=== PATIENT | female | born 1995 | race Caucasian/White ===

== ENCOUNTER 2018-07-19 14:27 | Emergency (ER) | payer OTHER ==
[2018-07-19 14:37] VITALS: BP 144/79; PULSE 90; RESP 18; TEMP 97.6
--- NOTE | 2018-07-19 15:52 | XR ---
EXAMINATION TYPE: XR foot complete LT DATE OF EXAM: 07/19/2018 COMPARISON: NONE HISTORY: Stubbed foot TECHNIQUE: 3 views FINDINGS: I see no fracture nor dislocation. Metatarsals are intact. Joint spaces are normal. IMPRESSION: Negative left foot exam.
--- NOTE | 2018-07-19 16:00 | ED ---
General Adult HPI - General Chief complaint: Extremity Injury, Lower Stated complaint: left 2nd toe injury Source: patient, RN notes reviewed, old records reviewed Mode of arrival: ambulatory Limitations: no limitations - History of Present Illness Initial comments: 22-year-old female patient no pertinent past history presents to ED after sustaining a mechanical toe injury to the second toe on her left foot yesterday. Patient was reportedly running up the stairs when she stubbed her toe against the stair. She did not fall. Patient has had pain with ambulation since. Patient denies any falls, head trauma, neck trauma, any other injury sustained. Patient denies all other complaints. Systemic: Pt denies fatigue, myalgia, fever/chills, rash. Pt denies weakness, night sweats, weight loss. Neuro: Pt denies headache, visual disturbances, syncope or pre-syncope. HEENT: Pt denies ocular discharge or irritation, otalgia, rhinorrhea, pharyngitis or notable lymphadenopathy. Cardiopulmonary: Pt denies chest pain, SOB, heart palpitations, dyspnea on exertion. Abdominal/GI: Pt denies abdominal pain, n/v/d. : Pt denies dysuria, burning w/ urination, frequency/urgency. Denies new onset urinary or bowel incontinence. MSK: Pt denies myalgia, loss of strength or function in extremities. Neuro: Pt denies new onset weakness, paresthesias. - Related Data Allergies Allergy/AdvReac Type Severity Reaction Status Date / Time No Known Allergies Allergy Verified 07/19/18 14:33 Review of Systems ROS Statement: Those systems with pertinent positive or pertinent negative responses have been documented in the HPI. ROS Other: All systems not noted in ROS Statement are negative. Past Medical History Past Medical History: No Reported History History of Any Multi-Drug Resistant Organisms: None Reported Past Surgical History: No Surgical Hx Reported Past Psychological History: Anxiety, Depression, PTSD Smoking Status: Current every day smoker Past Alcohol Use History: Daily Past Drug Use History: Marijuana General Exam - General Exam Comments Initial Comments: Constitutional: NAD, AOX3, Pt has pleasant affect. HEENT: NC/AT, trachea midline, neck supple, no lymphadenopathy. Posterior pharynx non erythematous, without exudates. External ears appear normal, without discharge. Mucous membranes moist. Eyes PERRLA, EOM intact. There is no scleral icterus. No pallor noted. Cardiopulmonary: RRR, no murmurs, rubs or gallops, no JVD noted. Lungs CTAB in anterior and posterior acosta. No peripheral edema. Abdominal exam: Abdomen soft and non-distended. Abdomen non-tender to palpation in all 4 quadrants. Bowel sounds active in LLQ. No hepatosplenomegaly. No ecchymosis Neuro: CN II-XII grossly intact. No nuchal rigidity. MSK: Second toe left foot DIP moderately tender to palpation. No significant ecchymosis. Patient has full range of motion, neurovascularly intact. Sensation intact. No other areas of tenderness on foot or ankle. No posterior calf tenderness bilaterally, homans sign negative bilaterally. Posterior tibialis and radial pulse +2 bilaterally. Sensation intact in upper and lower extremities. Full active ROM in upper and lower extremities, 5/5 stregnth. Limitations: no limitations Course Vital Signs 07/19/18 14:33 Temperature 97.6 F Pulse Rate 90 Respiratory 18 Rate Blood Pressure 144/79 O2 Sat by Pulse 100 Oximetry Medical Decision Making - Medical Decision Making 22-year-old female patient presents to ED if sustaining a mechanical toe injury to second toe left foot yesterday. Physical exam displayed the DIP of the affected toe to be mildly tender to palpation.Neurovascularly intact. Plain film did not display any acute fracture. Patient informed of findings. Patient of this is likely just a sprain/contusion. Patient to use [id number] anti -inflammatories for pain as needed. Patient prescribed postop walking shoe to help with symptoms. Patient to bear weight as tolerated. Patient to follow with PCP in 1-2 days. Patient to return to ED if any new signs symptoms develop. Case discussed with Dr. Sykes. Disposition Clinical Impression: Sprain of toe Disposition: HOME SELF-CARE Condition: Good Instructions: Foot Sprain (ED) Additional Instructions: Patient to adhere to previously discussed treatment plan and will take medication(s) as directed. Patient to follow up with PCP in 1-2 days. Patient to return to ED if symptoms do not improve. Is patient prescribed a controlled substance at d/c from ED?: No Referrals: Charlene Woods DO [Primary Care Provider] - 1-2 days Time of Disposition: 16:00
== END 2018-07-19 16:06 | disposition home or self-care (01) ==
LOC: EC 14:27
DX: S93.515A Sprain of interphalangeal joint of left lesser toe(s), initial encounter (principal); F17.200 Nicotine dependence, unspecified, uncomplicated; W22.8XXA Striking against or struck by other objects, initial encounter; Y92.009 Unspecified place in unspecified non-institutional (private) residence as the place of occurrence of the external cause
CPT/HCPCS: 99284

== ENCOUNTER 2018-08-01 15:21 | Emergency (ER) | payer OTHER ==
[2018-08-01 17:00] VITALS: RESP 16; TEMP 98.2
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
[2018-08-01 19:45] VITALS: BP 132/91; PULSE 68
== END 2018-08-01 19:45 | disposition home or self-care (01) ==
LOC: EC 15:21
DX: S70.02XA Contusion of left hip, initial encounter (principal); F17.200 Nicotine dependence, unspecified, uncomplicated; V48.5XXA Car driver injured in noncollision transport accident in traffic accident, initial encounter; Y92.410 Unspecified street and highway as the place of occurrence of the external cause
CPT/HCPCS: 73502; 99283

== ENCOUNTER 2018-10-04 18:50 | Emergency (ER) | payer OTHER ==
[2018-10-04 18:57] VITALS: BP 135/86; PULSE 77; RESP 18; TEMP 98.1
[2018-10-04] MEDS ORDERED: IBUPROFEN 600 MG STARTER PACK 4 TAB BTL PO STA (19:14)
[2018-10-04] MEDS ORDERED: ACETAMINOPHEN TAB 500 MG TAB PO STA (19:15)
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
== END 2018-10-04 19:50 | disposition home or self-care (01) ==
LOC: EC 18:50
DX: S40.011A Contusion of right shoulder, initial encounter (principal); S81.812A Laceration without foreign body, left lower leg, initial encounter; L03.116 Cellulitis of left lower limb; Z48.02 Encounter for removal of sutures; F41.9 Anxiety disorder, unspecified; F32.9 Major depressive disorder, single episode, unspecified; F17.200 Nicotine dependence, unspecified, uncomplicated; Z79.899 Other long term (current) drug therapy; V43.52XA Car driver injured in collision with other type car in traffic accident, initial encounter; W22.11XA Striking against or struck by driver side automobile airbag, initial encounter; Y92.410 Unspecified street and highway as the place of occurrence of the external cause
CPT/HCPCS: 99284

== ENCOUNTER 2021-12-24 12:39 | Inpatient (IN) | payer OTHER ==
[2021-12-24] MEDS ORDERED: MORPHINE SULFATE 4 MG/ML SYRINGE IV STA (13:23)
[2021-12-24] MEDS ORDERED: SODIUM CHLORIDE 0.9% 1,000 ML IV STA (13:23)
--- NOTE | 2021-12-24 13:30 | ED ---
General Adult HPI - General Source: patient, family, RN notes reviewed, old records reviewed Mode of arrival: ambulatory Limitations: no limitations - History of Present Illness -: days(s) (5) Location: abdomen Associated Symptoms: other (rectal bleeding) Treatments Prior to Arrival: other <Tyrese Coates - Last Filed: 12/24/21 15:03> <JohnNick - Last Filed: 12/24/21 18:09> - General Chief complaint: Abdominal Pain Stated complaint: abd pain/blood in stool Time Seen by Provider: 12/24/21 13:15 - History of Present Illness Initial comments: Well-appearing 26-year-old female, alert and oriented 4, presents to the emergency room with her mom complaining of abdominal pain and one episode of br ight red rectal bleeding today. Patient states that she was seen at [facility] 5 days ago for abdominal pain and transferred to [facility]. She states that PAYROLL BENEFITS ADMINISTRATOR and general surgery cleared her after CT scan, ultrasound and blood work and she was discharged home yesterday. She states that her hemoglobin at discharge was 8. She continues to have abdominal pain and nausea and vomiting. She states her vomitus is food and watery in nature, denies any blood. She states they did rule out ovarian torsion but states she they told her she does have a mass in her pelvis, not clear on a diagnosis. They didn't state that it may be a hemorrhagic cyst. Patient states that she started her period today. She has not made an appointment to follow up with her PAYROLL BENEFITS ADMINISTRATOR yet. She did call her primary care doctor who recommended her come back to the emergency room for re-evaluation. She states that she was not happy with the care she received an [place] and felt she was discharged to soon. She denies any other medical history other than migraine headaches which she was frequently taking Excedrin Migraine and is now taking sumatriptan. She denies any chest pain or difficulty breathing. No fevers. She does vape, denies drug or alcohol use. (Tyrese Coates) - Related Data Home Medications Medication Instructions Recorded Confirmed Amitriptyline HCl [Elavil] 25 mg PO HS 12/24/21 12/24/21 Docusate [Colace] 100 mg PO TID 12/24/21 12/24/21 HYDROcodone/APAP 5-325MG [Minter 1 tab PO 5XD PRN 12/24/21 12/24/21 5-325] Ibuprofen [Motrin] 800 mg PO Q6H PRN 12/24/21 12/24/21 Magnesium Oxide [Magox 400] 400 mg PO DAILY 12/24/21 12/24/21 Melatonin 20 mg PO HS 12/24/21 12/24/21 Ondansetron [Zofran ODT] 4 mg PO Q8HR PRN 12/24/21 12/24/21 SUMAtriptan succinate 100 mg PO BID PRN 12/24/21 12/24/21 Allergies Allergy/AdvReac Type Severity Reaction Status Date / Time No Known Allergies Allergy Verified 12/24/21 15:36 Review of Systems ROS Other: All systems not noted in ROS Statement are negative. <Tyrese Coates - Last Filed: 12/24/21 15:03> ROS Other: All systems not noted in ROS Statement are negative. <Nick Lopez - Last Filed: 12/24/21 18:09> ROS Statement: Those systems with pertinent positive or pertinent negative responses have been documented in the HPI. Past Medical History Past Medical History: No Reported History Additional Past Medical History / Comment(s): Migraines History of Any Multi-Drug Resistant Organisms: None Reported Past Surgical History: No Surgical Hx Reported Additional Past Surgical History / Comment(s): Ovarian cyst. Past Psychological History: Anxiety, Depression, PTSD Smoking Status: Vaper Past Alcohol Use History: Daily Past Drug Use History: Marijuana <Tyrese Coates - Last Filed: 12/24/21 15:03> General Exam Limitations: no limitations General appearance: alert, in no apparent distress Head exam: Present: atraumatic Eye exam: Present: normal appearance, EOMI. Absent: scleral icterus, conjunctival injection, periorbital swelling ENT exam: Present: normal exam, normal oropharynx, mucous membranes moist Neck exam: Present: full ROM. Absent: tenderness, meningismus Respiratory exam: Present: normal lung sounds bilaterally. Absent: respiratory distress, accessory muscle use Cardiovascular Exam: Present: regular rate, normal rhythm GI/Abdominal exam: Present: soft, tenderness (Left lower quadrant, suprapubic). Absent: distended, guarding, rigid Rectal exam: Present: normal rectal tone, hemorrhoids. Absent: mass, tenderness External exam: Present: other (tampon in place ) Extremities exam: Present: full ROM, normal capillary refill. Absent: tenderness, pedal edema Back exam: Present: normal inspection, full ROM. Absent: tenderness, CVA tenderness (R), CVA tenderness (L), rash noted Neurological exam: Present: alert, oriented X3, normal gait Psychiatric exam: Present: anxious (tearful) Skin exam: Present: warm, dry, normal color. Absent: cyanosis, diaphoretic, erythema, petechiae, pallor <Tyrese Coates - Last Filed: 12/24/21 15:03> Course <Nick Lopez - Last Filed: 12/24/21 18:09> Vital Signs 12/24/21 12/24/21 12:45 14:13 Temperature 98.1 F 99.0 F Pulse Rate 78 99 Respiratory 18 14 Rate Blood Pressure 129/83 127/77 O2 Sat by Pulse 97 100 Oximetry - Reevaluation(s) Reevaluation #1: 12/24/21 18:04 The patient was endorsed me at shift change pending ultrasound results. Ultrasound does show evidence of fluid in the pelvis suspicious for blood after discussion with radiology CAT scan was ordered a CAT scan is showing evidence a large amount of blood is believed be hemorrhagic fluid in the pelvis. I did discuss case Dr. Smith who did come see the patient will be admitted with TRACTOR DRILL OPERATOR consultation. I did discuss the findings the patient and family. (Nick Lopez) Medical Decision Making - Lab Data Result diagrams: 12/24/21 14:00 12/24/21 14:00 <Tyrese Coates - Last Filed: 12/24/21 15:03> - Lab Data Result diagrams: 12/24/21 14:00 12/24/21 14:00 <Nick Lopez - Last Filed: 12/24/21 18:09> - Medical Decision Making Patient presents with abdominal pain for 5 days and rectal bleeding that started today. Hemoglobin is 10.4, occult blood is positive. UA shows 1+ ketones and she was given a liter of saline. Her urine test is negative. Ultrasound is pending, case was signed out to Dr. Lopez (Tyrese Coates) - Lab Data Lab Results 12/24/21 12/24/21 12/24/21 Range/Units 14:00 14:00 14:00 WBC 7.8 (3.8-10.6) k/uL RBC 3.55 L (3.80-5.40) m/uL Hgb 10.4 L (11.4-16.0) gm/dL Hct 31.4 L (34.0-46.0) % MCV 88.6 (80.0-100.0) fL MCH 29.2 (25.0-35.0) pg MCHC 33.0 (31.0-37.0) g/dL RDW 13.6 (11.5-15.5) % Plt Count 275 (150-450) k/uL MPV 7.6 Neutrophils % 69 % Lymphocytes % 21 % Monocytes % 7 % Eosinophils % 0 % Basophils % 1 % Neutrophils # 5.4 (1.3-7.7) k/uL Lymphocytes # 1.7 (1.0-4.8) k/uL Monocytes # 0.5 (0-1.0) k/uL Eosinophils # 0.0 (0-0.7) k/uL Basophils # 0.0 (0-0.2) k/uL PT 10.4 (9.0-12.0) sec INR 0.9 (<1.2) APTT 25.3 (22.0-30.0) sec Sodium 137 (137-145) mmol/L Potassium 3.7 (3.5-5.1) mmol/L Chloride 102 (98-107) mmol/L Carbon Dioxide 29 (22-30) mmol/L Anion Gap 6 mmol/L BUN 11 (7-17) mg/dL Creatinine 0.55 (0.52-1.04) mg/dL Est GFR (CKD-EPI)AfAm >90 (>60 ml/min/1.73 sqM) Est GFR (CKD-EPI)NonAf >90 (>60 ml/min/1.73 sqM) Glucose 114 H (74-99) mg/dL Plasma Lactic Acid Mike (0.7-2.0) mmol/L Calcium 9.8 (8.4-10.2) mg/dL Total Bilirubin 0.9 (0.2-1.3) mg/dL AST 51 H (14-36) U/L ALT 35 H (4-34) U/L Alkaline Phosphatase 60 (38-126) U/L Total Protein 7.8 (6.3-8.2) g/dL Albumin 4.5 (3.5-5.0) g/dL Amylase 68 (30-110) U/L Lipase 110 (23-300) U/L Urine Color Urine Appearance (Clear) Urine pH (5.0-8.0) Ur Specific [place] (1.001-1.035) Urine Protein (Negative) Urine Glucose (UA) (Negative) Urine Ketones (Negative) Urine Blood (Negative) Urine Nitrite (Negative) Urine Bilirubin (Negative) Urine Urobilinogen (<2.0) mg/dL Ur Leukocyte Esterase (Negative) Urine HCG, Qual (Not Detectd) Stool Occult Blood (Negative) Blood Type Blood Type Recheck Bld Type Recheck Status Antibody Screen Spec Expiration Date 12/24/21 12/24/21 12/24/21 Range/Units 14:00 14:00 14:12 WBC (3.8-10.6) k/uL RBC (3.80-5.40) m/uL Hgb (11.4-16.0) gm/dL Hct (34.0-46.0) % MCV (80.0-100.0) fL MCH (25.0-35.0) pg MCHC (31.0-37.0) g/dL RDW (11.5-15.5) % Plt Count (150-450) k/uL MPV Neutrophils % % Lymphocytes % % Monocytes % % Eosinophils % % Basophils % % Neutrophils # (1.3-7.7) k/uL Lymphocytes # (1.0-4.8) k/uL Monocytes # (0-1.0) k/uL Eosinophils # (0-0.7) k/uL Basophils # (0-0.2) k/uL PT (9.0-12.0) sec INR (<1.2) APTT (22.0-30.0) sec Sodium (137-145) mmol/L Potassium (3.5-5.1) mmol/L Chloride (98-107) mmol/L Carbon Dioxide (22-30) mmol/L Anion Gap mmol/L BUN (7-17) mg/dL Creatinine (0.52-1.04) mg/dL Est GFR (CKD-EPI)AfAm (>60 ml/min/1.73 sqM) Est GFR (CKD-EPI)NonAf (>60 ml/min/1.73 sqM) Glucose (74-99) mg/dL Plasma Lactic Acid Mike 1.3 (0.7-2.0) mmol/L Calcium (8.4-10.2) mg/dL Total Bilirubin (0.2-1.3) mg/dL AST (14-36) U/L ALT (4-34) U/L Alkaline Phosphatase (38-126) U/L Total Protein (6.3-8.2) g/dL Albumin (3.5-5.0) g/dL Amylase (30-110) U/L Lipase (23-300) U/L Urine Color Light Yellow Urine Appearance Clear (Clear) Urine pH 8.0 (5.0-8.0) Ur Specific [place] 1.009 (1.001-1.035) Urine Protein Negative (Negative) Urine Glucose (UA) Negative (Negative) Urine Ketones 1+ H (Negative) Urine Blood Negative (Negative) Urine Nitrite Negative (Negative) Urine Bilirubin Negative (Negative) Urine Urobilinogen <2.0 (<2.0) mg/dL Ur Leukocyte Esterase Negative (Negative) Urine HCG, Qual (Not Detectd) Stool Occult Blood (Negative) Blood Type O Positive Blood Type Recheck No Previous Record Bld Type Recheck Status CABO Indicated Antibody Screen NEGATIVE Spec Expiration Date 12/27/2021229912/24/21 12/24/21 Range/Units 14:12 14:12 WBC (3.8-10.6) k/uL RBC (3.80-5.40) m/uL Hgb (11.4-16.0) gm/dL Hct (34.0-46.0) % MCV (80.0-100.0) fL MCH (25.0-35.0) pg MCHC (31.0-37.0) g/dL RDW (11.5-15.5) % Plt Count (150-450) k/uL MPV Neutrophils % % Lymphocytes % % Monocytes % % Eosinophils % % Basophils % % Neutrophils # (1.3-7.7) k/uL Lymphocytes # (1.0-4.8) k/uL Monocytes # (0-1.0) k/uL Eosinophils # (0-0.7) k/uL Basophils # (0-0.2) k/uL PT (9.0-12.0) sec INR (<1.2) APTT (22.0-30.0) sec Sodium (137-145) mmol/L Potassium (3.5-5.1) mmol/L Chloride (98-107) mmol/L Carbon Dioxide (22-30) mmol/L Anion Gap mmol/L BUN (7-17) mg/dL Creatinine (0.52-1.04) mg/dL Est GFR (CKD-EPI)AfAm (>60 ml/min/1.73 sqM) Est GFR (CKD-EPI)NonAf (>60 ml/min/1.73 sqM) Glucose (74-99) mg/dL Plasma Lactic Acid Mike (0.7-2.0) mmol/L Calcium (8.4-10.2) mg/dL Total Bilirubin (0.2-1.3) mg/dL AST (14-36) U/L ALT (4-34) U/L Alkaline Phosphatase (38-126) U/L Total Protein (6.3-8.2) g/dL Albumin (3.5-5.0) g/dL Amylase (30-110) U/L Lipase (23-300) U/L Urine Color Urine Appearance (Clear) Urine pH (5.0-8.0) Ur Specific [place] (1.001-1.035) Urine Protein (Negative) Urine Glucose (UA) (Negative) Urine Ketones (Negative) Urine Blood (Negative) Urine Nitrite (Negative) Urine Bilirubin (Negative) Urine Urobilinogen (<2.0) mg/dL Ur Leukocyte Esterase (Negative) Urine HCG, Qual Not Detected (Not Detectd) Stool Occult Blood Positive H (Negative) Blood Type Blood Type Recheck Bld Type Recheck Status Antibody Screen Spec Expiration Date Disposition <Tyrese Coates - Last Filed: 12/24/21 15:03> Decision Date: 12/24/21 Decision Time: 18:09 <Nick Lopez - Last Filed: 12/24/21 18:09> Clinical Impression: Intra abdominal hemorrhage, Abdominal pain, Anemia Disposition: ADMITTED IP TO THIS [facility] Condition: Stable Referrals: Anay Vieira MD [Primary Care Provider] - 1-2 days
[2021-12-24] MEDS ORDERED: LORazepam 2 MG/ML INJ IV STA (13:40)
[2021-12-24] MEDS ORDERED: ONDANSETRON 4 MG/2 ML VIAL IVP STA ×2 (13:41→20:07)
[2021-12-24 14:18] LABS: Basophils % (A) 1 %; Eosinophils % (A) 0 %; HCT 31.4 % (34.0-46.0); HGB 10.4 gm/dL (11.4-16.0); Lymphocytes # (A) 1.7 k/uL (1.0-4.8); Lymphocytes % (A) 21 %; MCH 29.2 pg (25.0-35.0); MCV 88.6 fL (80.0-100.0); Mean Platelet Volume 7.6; Monocytes # (A) 0.5 k/uL (0-1.0); Monocytes % (A) 7 %; Neutrophils # (A) 5.4 k/uL (1.3-7.7); Neutrophils % (A) 69 %; Platelet Count 275 k/uL (150-450); RBC 3.55 m/uL (3.80-5.40); RDW 13.6 % (11.5-15.5); WBC 7.8 k/uL (3.8-10.6)
[2021-12-24 14:27] LABS: Appearance,Urine Clear (Clear); Bilirubin,Urine Negative (Negative); Blood,Urine Negative (Negative); Color,Urine Light Yellow; Glucose,Urine (UA) Negative (Negative); Ketones,Urine 1+ (Negative); Leukocyte Esterase,Urine Negative (Negative); Nitrite,Urine Negative (Negative); Protein,Urine Negative (Negative); Specific Gravity,Urine 1.009 (1.001-1.035); Urobilinogen,Urine <2.0 mg/dL (<2.0)
[2021-12-24] MEDS ORDERED: PANTOPRAZOLE 40 MG/10 ML VIAL IVP STA (14:27)
[2021-12-24 14:28] LABS: INR 0.9 (<1.2); Partial Thromboplastin Time 25.3 sec (22.0-30.0); Prothrombin Time 10.4 sec (9.0-12.0)
[2021-12-24 14:37] LABS: ALT 35 U/L (4-34); AST 51 U/L (14-36); African American GFR (CKD) >90 (>60 ml/min/1.73 sqM); Albumin 4.5 g/dL (3.5-5.0); Alkaline Phosphatase 60 U/L (38-126); Amylase 68 U/L (30-110); Anion Gap 6 mmol/L; Blood Urea Nitrogen 11 mg/dL (7-17); Calcium 9.8 mg/dL (8.4-10.2); Carbon Dioxide 29 mmol/L (22-30); Chloride 102 mmol/L (98-107); Glucose 114 mg/dL (74-99); Lipase 110 U/L (23-300); Non-African American GFR(CKD) >90 (>60 ml/min/1.73 sqM); Potassium 3.7 mmol/L (3.5-5.1); Sodium 137 mmol/L (137-145); Total Bilirubin 0.9 mg/dL (0.2-1.3); Total Protein 7.8 g/dL (6.3-8.2)
--- NOTE | 2021-12-24 15:43 | US ---
EXAMINATION TYPE: US transvaginal DATE OF EXAM: 12/24/2021 COMPARISON: NONE CLINICAL HISTORY: pelvic mass, ovarian cyst. Pelvic mass, ovarian cyst per order. 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 Patient still has both ovaries. G0. TECHNIQUE: Transvaginal (TV). Date of LMP: 12/22/2021 EXAM MEASUREMENTS: Uterus: 6.6 x 4.1 x 3.6 cm Endometrial Stripe: 0.45 cm Right Ovary: 4.1 x 2.2 x 2.5 cm Left Ovary: Not definitely identified. 1. Uterus: Anteverted Appears slightly heterogeneous. 2. Endometrium: Measures 0.45 cm. 3. Right Ovary: Follicles seen. 4. Left Ovary: Not definitely identified. Area seen that could resemble the left ovary measuring 3.2 x 2.1 x 2.2 cm. Great amount of complex, heterogeneous material seen surrounding this area in the le ft adnexa. Spectral, color and waveform doppler imaging shows arterial and venous flow within the right ovary . Left ovary is not definitely identified. Area that could resemble the left ovary did show arterial and venous flow within. 5. Bilateral Adnexa: Great amount of complex material is seen throughout the pelvis. This appears to extend more toward the left adnexa. Definite borders of a mass not able to be identified. 6. Posterior cul-de-sac: Fluid is seen. IMPRESSION: 1. There is a large amount of complex material seen throughout the pelvis which could represent hemor rhage. Infectious etiologies not excluded. Left ovary is poorly defined and a left adnexal mass or he matoma also in the differential diagnosis. Recommend that CT scan. Report called to emergency room wi th result 3:33 PM 12/24/2021. Correlation with beta hCG recommend exclude ectopic . Pelvic mas s or neoplasm in the differential diagnosis.
--- NOTE | 2021-12-24 16:58 | CT ---
EXAMINATION TYPE: CT abdomen pelvis w con CT DLP: 579.2 mGycm, Automated exposure control for dose reduction was used. DATE OF EXAM: 12/24/2021 4:33 PM COMPARISON: Pelvic ultrasound same day. CLINICAL INDICATION:Female, 26 years old with history of Abdominal pain, acute, nonlocalized; Abdomin al pain, vomiting and bloody stool. Negative urine beta-hCG. TECHNIQUE: Standard CT of the abdomen and pelvis following the administration of 100 cc of Isovue 3 00 IV contrast material. Coronal and sagittal reformats were performed. FINDINGS: LOWER CHEST: Unremarkable ABDOMEN LIVER: Focal fatty infiltration adjacent to the falciform ligament in segment IVb GALLBLADDER AND BILE DUCTS: Unremarkable. PANCREAS: Unremarkable. SPLEEN: Unremarkable. ADRENAL GLANDS: Unremarkable. KIDNEYS AND URETERS: No evidence of hydronephrosis or renal calculus. The ureters are unremarkable. PELVIS BLADDER: Unremarkable REPRODUCTIVE: The ovaries are not definitively visualized secondary to blood products mentioned below . ABDOMEN & PELVIS STOMACH AND BOWEL: The sigmoid colon and rectum are suboptimally distended. No evidence of bowel obst ruction. The appendix is visualized and within normal limits. PERITONEUM: No evidence of pneumoperitoneum. There is complex high density fluid seen layering within the pelvis and paracolic gutters as seen on ultrasound. This higher density material is favored most consistent with blood products given Hounsfield units of ~60. VASCULATURE: There is questionable blush of contrast seen on series 201 image 56-59 near the level of the left external iliac. MUSCULOSKELETAL: No acute osseous abnormalities. LYMPH NODES: No gross evidence for lymphadenopathy. SOFT TISSUE/ABDOMINAL WALL: Unremarkable Findings communicated to Dr. Nick Lopez MD on 12/24/2021 4:[address] Nick Gutierres. IMPRESSION: 1. High density fluid within the pelvis and paracolic gutters most consistent with blood products. Q uestionable blush of contrast seen near the expected location of the left ovary. Consider CTA of the abdomen and pelvis with delayed imaging for further evaluation for source of hemorrhage. 2. Ovaries are not definitively visualized. 3. Appendix is visualized and within normal limits.
--- NOTE | 2021-12-24 17:57 | P.GSHP ---
History of Present Illness H&P Date: 12/24/21 CHIEF COMPLAINT: Lower abdominal pain for over one to 2 weeks HISTORY OF PRESENT ILLNESS: The patient is a 26-year-old female who presents with history where one year ago December 2020, she had a excision of teratoma along the right ovary over 6 cm in size. She reports questionable history of endometriosis. Today, she now presents with new history over one to 2 weeks ago with lower abdominal pain. She reports having her menstrual cycle. She also reports having menses. Patient was transferred from [facility] to [facility] in [facility]. Patient reports she was scheduled to undergo surgery however her surgery was canceled due to her Covid positive status. Patient was recently discharged from that facility several days ago. Patient reports her pain is severe 10 out of 10 uncontrolled with Mcbee including ibuprofen. Ultrasound of the pelvis demonstrated poor visualization of the left ovary. Right ovary was slightly enlarged over [address] of the abdomen and pelvis confirmed hemoperitoneum. With results of these findings, Gen. surgery is consulted, julia e her admission. PAST MEDICAL HISTORY: See list and reviewed PAST SURGICAL HISTORY: See list and reviewed CURRENT MEDICATIONS: See list and reviewed ALLERGIES: See list and reviewed SOCIAL HISTORY: See list and reviewed FAMILY HISTORY: See list and reviewed REVIEW OF ORGAN SYSTEMS: CONSTITUTIONAL: Present fever, no chills. Denies recent weight loss. HEENT: Denies any trouble with vision, hearing or nosebleeds. No difficulty swallowing. LYMPHATIC: The patient denies any lumps and bumps around the neck. ENDOCRINE: Denies any thyroid disorders. Denies any blood sugar glucose intolerance. RESPIRATORY: Denies shortness of breath including chronic cough. CARDIOVASCULAR: Denies history of chest pain with exertion. GASTROINTESTINAL: Denies regurgitation of bile at night. Reports tenesmus and intermittent constipation. GENITOURINARY: Denies any blood in urine or increased urinary frequency. MUSCULOSKELETAL: Denies current joint arthritis. NEUROLOGIC: Denies any numbness or tingling along the distal extremities. Has headaches due to Chiari malformation. PSYCHIATRIC: Denies any suicidal ideation. Has postemetic stress disorder, anxiety and depression. HEMATOLOGIC: Denies any abnormal bleeding or bruising. PHYSICAL EXAMINATION: VITALS: Reviewed GENERAL: Gen. well-developed female in moderate distress. Pleasant. HEENT: No sclera icterus. Extraocular movements grossly intact. Moist buccal mucosa. Head is atraumatic, normocephalic. Hears conversational speech. No nasal drainage. NECK: Supple without lymphadenopathy. No JV distention. CHEST: Non-labored respirations and equal bilateral excursions. CARDIOVASCULAR: Regular rate and rhythm. Palpable 2+ radial pulses. ABDOMEN: Soft. Diffusely tender. Peritoneal signs. MUSCULOSKELETAL: No clubbing, cyanosis or edema. NEUROLOGIC: No focal or lateralizing signs. PSYCH: Hyper/accelerated affect. Alert and oriented to person, place and time. SKIN: Well perfused. Good skin turgor. LABS: Reviewed. White blood cell count normal at 7.8. Hemoglobin low at 10.4. LFTs AST, ALT mildly elevated. Urine hCG is negative. Stool occult positive. STUDIES: CT of the abdomen and pelvis independently reviewed with flow within the pelvis. No solid organ injury of the spleen or liver or kidneys. This is my independent interpretation. REPORTS: Transvaginal ultrasound report review 4 cm right ovary. Left ovary not identified. Fluid identified in the posterior cul-de-sac. CT of the abdomen and pelvis report reviewed with solid organs unremarkable. Density with an pelvis consistent with blood and free fluid. ASSESSMENT: 1. Abnormal computed tomography scan of abdomen and pelvis with hemoperitoneum 2. Peritonitis 3. History of right ovarian turtle PLAN: 1. Surgical options described including diagnostic laparoscopy evacuation of hemoperitoneum and lysis of adhesions. 2. Gynecological consultation also described. 3. Family and patient agreeable to proceed with robotic lysis of adhesions, diagnostic laparoscopy with evacuation of hemoperitoneum. 4. Management of pain described including nonnarcotic pain management Past Medical History Past Medical History: No Reported History Additional Past Medical History / Comment(s): Migraines History of Any Multi-Drug Resistant Organisms: None Reported Past Surgical History: No Surgical Hx Reported Additional Past Surgical History / Comment(s): Ovarian cyst. Past Psychological History: Anxiety, Depression, PTSD Smoking Status: Vaper Past Alcohol Use History: Daily Past Drug Use History: Marijuana Medications and Allergies Home Medications Medication Instructions Recorded Confirmed Type Amitriptyline HCl [Elavil] 25 mg PO HS 12/24/21 12/24/21 History Docusate [Colace] 100 mg PO TID 12/24/21 12/24/21 History HYDROcodone/APAP 5-325MG [Mcbee 1 tab PO 5XD PRN 12/24/21 12/24/21 History 5-325] Magnesium Oxide [Magox 400] 400 mg PO DAILY 12/24/21 12/24/21 History Melatonin 20 mg PO HS 12/24/21 12/24/21 History Ondansetron [Zofran ODT] 4 mg PO Q8HR PRN 12/24/21 12/24/21 History SUMAtriptan succinate 100 mg PO BID PRN 12/24/21 12/24/21 History Acetaminophen Tab [Tylenol Tab] 1,000 mg PO Q6HR PRN #30 tablet 12/26/21 Rx Simethicone [Gas-X] 125 mg PO AC-TID PRN #20 capsule 12/26/21 Rx Allergies Allergy/AdvReac Type Severity Reaction Status Date / Time No Known Allergies Allergy Verified 12/24/21 15:36 Surgical - Exam Vital Signs Temp Pulse Resp BP Pulse Ox 98.1 F 78 18 129/83 97 12/24/21 12:45 12/24/21 12:45 12/24/21 12:45 12/24/21 12:45 12/24/21 12:45 Results - Labs 12/28/21 09:10 12/28/21 09:10 Abnormal Lab Results - Last 24 Hours (Table) 12/24/21 12/24/21 12/24/21 Range/Units 14:00 14:00 14:12 RBC 3.55 L (3.80-5.40) m/uL Hgb 10.4 L (11.4-16.0) gm/dL Hct 31.4 L (34.0-46.0) % Glucose 114 H (74-99) mg/dL AST 51 H (14-36) U/L ALT 35 H (4-34) U/L Urine Ketones 1+ H (Negative) Stool Occult Blood (Negative) 12/24/21 Range/Units 14:12 RBC (3.80-5.40) m/uL Hgb (11.4-16.0) gm/dL Hct (34.0-46.0) % Glucose (74-99) mg/dL AST (14-36) U/L ALT (4-34) U/L Urine Ketones (Negative) Stool Occult Blood Positive H (Negative) Diabetes panel 12/24/21 Range/Units 14:00 Sodium 137 (137-145) mmol/L Potassium 3.7 (3.5-5.1) mmol/L Chloride 102 (98-107) mmol/L Carbon Dioxide 29 (22-30) mmol/L BUN 11 (7-17) mg/dL Creatinine 0.55 (0.52-1.04) mg/dL Glucose 114 H (74-99) mg/dL Calcium 9.8 (8.4-10.2) mg/dL AST 51 H (14-36) U/L ALT 35 H (4-34) U/L Alkaline Phosphatase 60 (38-126) U/L Total Protein 7.8 (6.3-8.2) g/dL Albumin 4.5 (3.5-5.0) g/dL Calcium panel 12/24/21 Range/Units 14:00 Calcium 9.8 (8.4-10.2) mg/dL Albumin 4.5 (3.5-5.0) g/dL Pituitary panel 12/24/21 Range/Units 14:00 Sodium 137 (137-145) mmol/L Potassium 3.7 (3.5-5.1) mmol/L Chloride 102 (98-107) mmol/L Carbon Dioxide 29 (22-30) mmol/L BUN 11 (7-17) mg/dL Creatinine 0.55 (0.52-1.04) mg/dL Glucose 114 H (74-99) mg/dL Calcium 9.8 (8.4-10.2) mg/dL Adrenal panel 12/24/21 Range/Units 14:00 Sodium 137 (137-145) mmol/L Potassium 3.7 (3.5-5.1) mmol/L Chloride 102 (98-107) mmol/L Carbon Dioxide 29 (22-30) mmol/L BUN 11 (7-17) mg/dL Creatinine 0.55 (0.52-1.04) mg/dL Glucose 114 H (74-99) mg/dL Calcium 9.8 (8.4-10.2) mg/dL Total Bilirubin 0.9 (0.2-1.3) mg/dL AST 51 H (14-36) U/L ALT 35 H (4-34) U/L Alkaline Phosphatase 60 (38-126) U/L Total Protein 7.8 (6.3-8.2) g/dL Albumin 4.5 (3.5-5.0) g/dL
[2021-12-24] MEDS ORDERED: SUMAtriptan succinate 50 MG TAB PO PRN (18:01)
[2021-12-24] MEDS ORDERED: NALOXONE 0.4 MG/ML 1 ML VIAL IV PRN (18:10)
[2021-12-24] MEDS: ACETAMINOPHEN IVPB SCH (19:26)
[2021-12-24] MEDS: HYDROmorphone 1 MG/ML 1 ML SYRINGE IVP PRN ×2 (20:16→23:39)
[2021-12-24] MEDS: ONDANSETRON 4 MG/2 ML VIAL IVP PRN (23:37)
[2021-12-25] MEDS: AMITRIPTYLINE HCL 25 MG TAB PO SCH (00:38)
[2021-12-25] MEDS: MELATONIN 5 MG TABLET PO SCH (00:38)
[2021-12-25] MEDS: FAMOTIDINE 20 MG TAB PO SCH ×2 (00:38→22:28)
[2021-12-25] MEDS: ACETAMINOPHEN IVPB SCH ×2 (01:25→22:28)
[2021-12-25 07:39] LABS: Basophils % (A) 1 %; Eosinophils # (A) 0.1 k/uL (0-0.7); Eosinophils % (A) 1 %; HGB 9.1 gm/dL (11.4-16.0); Lymphocytes # (A) 1.9 k/uL (1.0-4.8); Lymphocytes % (A) 28 %; MCH 29.3 pg (25.0-35.0); MCHC 32.5 g/dL (31.0-37.0); MCV 90.1 fL (80.0-100.0); Monocytes # (A) 0.4 k/uL (0-1.0); Monocytes % (A) 6 %; Neutrophils # (A) 4.1 k/uL (1.3-7.7); Neutrophils % (A) 61 %; Platelet Count 213 k/uL (150-450); RDW 13.7 % (11.5-15.5); WBC 6.6 k/uL (3.8-10.6)
[2021-12-25 08:11] LABS: African American GFR (CKD) >90 (>60 ml/min/1.73 sqM); Anion Gap 5 mmol/L; Blood Urea Nitrogen 9 mg/dL (7-17); Calcium 8.6 mg/dL (8.4-10.2); Carbon Dioxide 29 mmol/L (22-30); Chloride 103 mmol/L (98-107); Glucose 83 mg/dL (74-99); Non-African American GFR(CKD) >90 (>60 ml/min/1.73 sqM); Potassium 3.8 mmol/L (3.5-5.1); Sodium 137 mmol/L (137-145)
--- NOTE | 2021-12-25 09:04 | P.OBCN ---
History of Present Illness Consult date: 12/25/21 Reason for consult: pelvic pain (Hemoperitoneum) Chief complaint: Abdominal and pelvic pain History of present illness: 26-year-old G0 presented to the emergency room yesterday with complaints of increased abdominal pain. She was admitted last week to [facility] for 4 days due to bleeding inside of her pelvis. They were going to take her to the operating room but decided against that after positive Kallie test. I kept the patient for 4 days monitor her hemoglobin and then discharged her. She presented the next day to our emergency room complaining of increased pain. Dr. Smith admitted patient for diagnostic laparoscopy and removal of hemoperitoneum. Review of Systems All systems: negative Constitutional: Denies chills, Denies fever Eyes: denies blurred vision, denies pain Ears, nose, mouth and throat: Denies headache, Denies sore throat Cardiovascular: Denies chest pain, Denies shortness of breath Respiratory: Denies cough Gastrointestinal: Denies abdominal pain, Denies diarrhea, Denies nausea, Denies vomiting Genitourinary: Denies dysuria, Denies hematuria Musculoskeletal: Denies myalgias Integumentary: Denies pruritus, Denies rash Neurological: Denies numbness, Denies weakness Psychiatric: Denies anxiety, Denies depression Endocrine: Denies fatigue, Denies weight change Past Medical History Past Medical History: Neurologic Disorder (Chiari malformation) Additional Past Medical History / Comment(s): Migraines-caused by Chiari malformation History of Any Multi-Drug Resistant Organisms: None Reported Additional Past Surgical History / Comment(s): Dermoid cyst removed by laparoscopy Past Anesthesia/Blood Transfusion Reactions: No Reported Reaction Past Psychological History: Anxiety, Depression, PTSD Smoking Status: Vaper Past Alcohol Use History: Daily Past Drug Use History: Marijuana Medications and Allergies Home Medications Medication Instructions Recorded Confirmed Type Amitriptyline HCl [Elavil] 25 mg PO HS 12/24/21 12/24/21 History Docusate [Colace] 100 mg PO TID 12/24/21 12/24/21 History HYDROcodone/APAP 5-325MG [Bosque 1 tab PO 5XD PRN 12/24/21 12/24/21 History 5-325] Ibuprofen [Motrin] 800 mg PO Q6H PRN 12/24/21 12/24/21 History Magnesium Oxide [Magox 400] 400 mg PO DAILY 12/24/21 12/24/21 History Melatonin 20 mg PO HS 12/24/21 12/24/21 History Ondansetron [Zofran ODT] 4 mg PO Q8HR PRN 12/24/21 12/24/21 History SUMAtriptan succinate 100 mg PO BID PRN 12/24/21 12/24/21 History Allergies Allergy/AdvReac Type Severity Reaction Status Date / Time No Known Allergies Allergy Verified 12/24/21 15:36 Exam Osteopathic Statement: *. No significant issues noted on an osteopathic structural exam other than those noted in the History and Physical/Consult. Vital Signs Temp Pulse Pulse Resp BP BP Pulse Ox 12/25/21 03:43 98 F 76 16 105/68 100 12/25/21 00:00 98.6 F 82 16 130/80 100 12/24/21 23:20 98.2 F 85 18 135/87 100 12/24/21 22:03 98.2 F 85 16 135/87 100 12/24/21 19:34 98.7 F 96 14 113/74 100 12/24/21 14:13 99.0 F 99 14 127/77 100 12/24/21 12:45 98.1 F 78 18 129/83 97 Intake and Output 12/24/21 12/25/21 12/25/21 22:59 06:59 14:59 Intake Total 360 100 Balance 360 100 Intake: Intake, IV Titration 100 Amount .acetaminophen IV (Peds) 100 880 mg In Empty Bag 1 bag @ 352 mls/hr IVPB Q6HR [facility] Rx#:[id number] Oral 360 0 Other: # Voids 1 Weight 58.967 kg Heart: Regular rate and rhythm Lungs: Clearbilaterally Abdomen: Soft, mildly distended and tender to palpation Extremities: Negative Homans sign Results Result Diagrams: 12/25/21 07:18 12/25/21 07:18 Abnormal Lab Results - Last 24 Hours (Table) 12/24/21 12/24/21 12/24/21 Range/Units 14:00 14:00 14:12 RBC 3.55 L (3.80-5.40) m/uL Hgb 10.4 L (11.4-16.0) gm/dL Hct 31.4 L (34.0-46.0) % Glucose 114 H (74-99) mg/dL AST 51 H (14-36) U/L ALT 35 H (4-34) U/L Urine Ketones 1+ H (Negative) Stool Occult Blood (Negative) 12/24/21 12/25/21 Range/Units 14:12 07:18 RBC 3.10 L (3.80-5.40) m/uL Hgb 9.1 L (11.4-16.0) gm/dL Hct 28.0 L (34.0-46.0) % Glucose (74-99) mg/dL AST (14-36) U/L ALT (4-34) U/L Urine Ketones (Negative) Stool Occult Blood Positive H (Negative) Assessment and Plan (1) Intra abdominal hemorrhage Current Visit: Yes Status: Acute Code(s): R58 - HEMORRHAGE, NOT ELSEWHERE CLASSIFIED SNOMED Code(s): 632699986 Plan: 1. Dr. Smith will take the patient to the operating room today to evacuate the hemoperitoneum. If there are any pelvic organs then need my attention she can call me to the operating room at that time.
[2021-12-25] MEDS: HYDROmorphone 1 MG/ML 1 ML SYRINGE IVP PRN ×2 (09:09→12:05)
[2021-12-25] MEDS: ONDANSETRON 4 MG/2 ML VIAL IVP PRN ×3 (09:09→20:15)
[2021-12-25] MEDS ORDERED: LACTATED RINGERS 1,000 ML IV ONE ×2 (15:30→17:28)
[2021-12-25] MEDS ORDERED: HEPARIN SODIUM,PORCINE/PF 5,000 UNIT/0.5 ML SYRINGE SQ ONE (15:38)
[2021-12-25] MEDS ORDERED: SCOPOLAMINE 1 MG/72 HR PATCH TRANSDERM ONE (15:45)
[2021-12-25] MEDS ORDERED: DEXAMETHASONE SOD PHOSPHATE 4 MG/ML 1 ML VIAL IVP ONE (15:45)
[2021-12-25] MEDS ORDERED: MIDAZOLAM 2 MG/2 ML VIAL IVP ONE (15:45)
[2021-12-25] MEDS ORDERED: HEPARIN SODIUM,PORCINE 5,000 UNIT/ML 1 ML VIAL SQ ONE (16:02)
[2021-12-25] MEDS ORDERED: fentaNYL (PF) 50 MCG/ML 2 ML AMP IVP ONE (16:15)
[2021-12-25] MEDS ORDERED: PROPOFOL 10 MG/ML 20 ML VIAL IV ONE (16:24)
[2021-12-25] MEDS ORDERED: GLYCOPYRROLATE 0.2 MG/ML 2 ML VIAL ONE (16:24)
[2021-12-25] MEDS ORDERED: NEOSTIGMINE 1 MG/ML 10 ML VIAL ONE (16:24)
[2021-12-25] MEDS ORDERED: fentaNYL (PF) 50 MCG/ML 2 ML AMP ONE (16:24)
[2021-12-25] MEDS ORDERED: KETOROLAC 15 MG/ML 1 ML VIAL ONE (16:24)
[2021-12-25] MEDS ORDERED: MIDAZOLAM 2 MG/2 ML VIAL ONE (16:24)
[2021-12-25] MEDS ORDERED: LIDOCAINE 2% INJ 20 MG/ML (2 ML VIAL) ONE (16:24)
[2021-12-25] MEDS ORDERED: KETAMINE 10 MG/ML 20 ML VIAL ONE (16:24)
[2021-12-25] MEDS ORDERED: ROCURONIUM 10 MG/ML (5 ML VIAL) IV ONE (16:24)
[2021-12-25] MEDS ORDERED: SUCCINYLCHOLINE CHLORIDE 100 MG/5 ML SYR IV ONE (16:24)
[2021-12-25] MEDS ORDERED: LIDOCAINE 0.5%-EPI 1:200,000 50 ML VIAL SQ ONE (16:54)
[2021-12-25] MEDS ORDERED: HYDROmorphone 0.5 MG/0.5 ML SYRINGE IVP ONE (18:41)
--- NOTE | 2021-12-25 18:41 | P.OP ---
Date of Procedure: 12/25/21 Description of Procedure: SURGEON: YUNG SHARPE MD PREOPERATIVE DIAGNOSES: 1. Lower abdominal pain with peritonitis 2. Abnormal abdominal CT scan for hemoperitoneum 3. Chronic migraine headaches 4. Anxiety disorder 5. History of right ovarian teratoma 6. Budd-Chiari malformation 7. Depressive disorder 8. Posttraumatic stress disorder POSTOPERATIVE DIAGNOSES: 1. Lower abdominal pain with peritonitis 2. Abnormal abdominal CT scan for hemoperitoneum 3. Chronic migraine headaches 4. Anxiety disorder 5. History of right ovarian teratoma 6. Budd-Chiari malformation 7. Depressive disorder 8. Posttraumatic stress disorder 9. Left ovarian hemorrhagic cyst 10. Endometrioma of the left pelvis 11. Diffuse hemoperitoneum OPERATION: 1. Robotic-assisted da Abby Xi laparoscopic with lysis of adhesions with evacuation of hemoperitoneum 500 mL to 1000 mL 2. Peritoneal lavage 5000 mL normal saline ESTIMATED BLOOD LOSS: 5 mL. SPECIMENS REMOVED: None. COMPLICATIONS: None. Operative Findings: 1. Diffuse hemoperitoneum involving upper and lower abdomen 2. Over 5000 mL normal saline used to irrigate the abdomen 3. Between 500 mL to 1000 mL hemoperitoneum evacuated 4. Pelvic endometrioma involving the left ovary consistent with hemorrhagic left ovarian cyst 5. Right ovary unremarkable 6. Solid organs unremarkable 7. Fallopian tubes unremarkable 8. Large chocolate cyst involving the cul-de-sac posterior to the uterus INDICATIONS: The patient is a 26-year-old female who presents with moderate to severe generalized abdominal including the lower quadrant of the abdomen. Surgical intervention with diagnostic laparoscopy, lysis of adhesions and evacuation of hemoperitoneum were described. Informed consent was obtained. Robotic assisted laparoscopic approach was described. Informed consent was obtained. DESCRIPTION OF PROCEDURE: Patient was brought to the operating room, placed in supine position. After general induction, the abdomen had been prepped and draped in standard sterile fashion. The robotic da Abby XI system was primed. A timeout protocol was performed. The robot was docked along the left lateral abdomen. Please note prior to docking of the robot; however, a 5 mm 0 degree laparoscopic trocar entry was performed along the left upper quadrant. Next, three 8 mm robotic ports were placed along the upper abdomen. The camera 8-mm port was maintained along the epigastrium. Please note that the ports were placed at least 10 to 15 cm away from the target anatomy. Instruments including graspers and robotic suction computational theory scientist were interchanged by the processing assistant. The patient was placed in Trendelenburg position, 7. I had sat at the console. Moderate blood was found within the abdomen including of the bilateral upper abdomen and lower abdomen. The right ovary was unremarkable for recurrent ovarian cyst or teratoma. The right fallopian tube was unremarkable. The left ovary was adherent to the deep pelvis with a large chocolate cyst identified along the pelvis and cul-de-sac posterior to the uterus. Moderate fresh blood was identified. The left fallopian tube was unremarkable. The abdomen was irrigated copiously with normal saline. Additionally, the appendix was unremar kable. Attention was brought to see left upper quadrant where the abdomen was also irrigated of blood. Right upper quadrant was similarly irrigated. Peritoneal lavage 5000 mL normal saline was performed until the irrigant was clear. No further active bleeding was found within the abdomen. Findings were consistent with a ruptured hemorrhagic left ovarian cyst. Between 500 mL to 1000 mL of hemoperitoneum was evacuated from the abdominal cavity. The robot was undocked. All pneumoperitoneum and instruments were evacuated from the abdominal cavity. The incisions were reapproximated using 4-0 Monocryl in an interrupted subcuticular fashion. Please note along the trocar sites, local anesthetic was placed as a field block prior to insertion of all instruments. Exofin was applied to the skin. At the end of the procedure needle, sponge, and instrument count had been verified correct by the surgical services manager. The patient was transferred to postanesthesia care unit in stable condition. Intraoperative findings were discussed with the patient's family images reviewed. Postoperatively, patient reports that her lower abdominal pain had resolved. She no longer had tenesmus of the rectum.
--- NOTE | 2021-12-25 18:43 | P.PN ---
Progress Note - Text Progress Note Date: 12/25/21 Immediately postoperatively, patient reports resolution of perirectal discomfort from hemoperitoneum. Patient pain had improved.
[2021-12-25] MEDS ORDERED: SODIUM CHLORIDE 0.9% 1,000 ML IV ONE (19:02)
[2021-12-25] MEDS: HYDROcodone/APAP 5-325MG 1 EACH TAB PO PRN (19:53)
[2021-12-25] MEDS: MORPHINE SULFATE 4 MG/ML SYRINGE IVP PRN (20:36)
[2021-12-25] MEDS ORDERED: MORPHINE SULFATE 4 MG/ML SYRINGE IVP PRN ×2 (21:11→21:15)
[2021-12-25] MEDS ORDERED: METOCLOPRAMIDE 5 MG/ML 2 ML VIAL IVP STA (22:37)
[2021-12-26] MEDS: HYDROcodone/APAP 5-325MG 1 EACH TAB PO PRN ×5 (00:04→21:03)
[2021-12-26] MEDS: AMITRIPTYLINE HCL 25 MG TAB PO SCH ×2 (00:04→19:45)
[2021-12-26] MEDS: ACETAMINOPHEN TAB 325 MG TAB PO SCH ×5 (00:05→23:25)
[2021-12-26] MEDS: SIMETHICONE 40 MG/0.6 ML DROPS 2,000 MG/30 ML BOTTLE PO SCH ×5 (00:05→21:03)
[2021-12-26] MEDS: MELATONIN 5 MG TABLET PO SCH ×2 (00:05→21:04)
[2021-12-26] MEDS: FAMOTIDINE 20 MG TAB PO SCH ×3 (00:22→19:45)
[2021-12-26] MEDS: MORPHINE SULFATE 4 MG/ML SYRINGE IVP PRN ×4 (03:54→15:13)
--- NOTE | 2021-12-26 08:17 | P.PN ---
Subjective Progress Note Date: 12/26/21 CHIEF COMPLAINT: Hemoperitoneum HISTORY OF PRESENT ILLNESS: The patient is a 26-year-old status post diagnostic laparoscopy, lysis of adhesions and evacuation of hemoperitoneum between 500 mL 2000 mL. She reports improvement of her abdominal pain. She complains of appropriate incisional pain. Overall, patient reports feeling remarkably better. She is tolerating clear liquid diet. ROS: No reports of nausea and vomiting. No bowel movements. No fevers or chills. No new chest pain. No productive sputum PHYSICAL EXAM: VITAL SIGNS: Reviewed CONSTITUTIONAL: Well developed and in no acute distress. EYES: Conjuctivae without sclera icterus. Extraocular movements grossly intact. HEAD, EARS, NOSE, THROAT: Moist buccal mucosa. Head is atraumatic, normocephalic. Hears conversational speech. No nasal drainage. RESPIRATORY: Non-labored respirations and equal bilateral excursions. CARDIOVASCULAR: Palpable 2+ radial pulses. ABDOMEN: Incisions clean dry and intact. No peritonitis. MUSCULOSKELETAL: No gross deformity of the lower extremities noted. No clubbing. No cyanosis. SKIN: Good skin turgor. Well perfused. NEUROLOGIC: Cranial nerves II through XII grossly intact. No focal or lateralizing signs. PSYCH: Appropriate affect. Alert and oriented to person, place and time. CLINICAL LABS: Reviewed. Hemoglobin down to 10.1-9.1. ASSESSMENT: 1. Hemoperitoneum due to ruptured left ovarian hemorrhagic cyst 2. Acute blood loss anemia PLAN: 1. Will advance to regular diet 2. 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 Will follow-up as outpatient 4. Low impact activity in the next 1 week 5. Will need iron supplements. Objective - Vital Signs Vital signs: Vital Signs Temp 98.4 F 12/26/21 04:00 Pulse 73 12/26/21 04:00 Resp 17 12/26/21 04:00 BP 100/63 12/26/21 04:00 Pulse Ox 100 12/26/21 04:00 FiO2 Intake & Output 12/25/21 12/26/21 12/26/21 18:59 06:59 18:59 Intake Total 1750 125 Output Total 5 Balance 1745 125 Weight 58.967 kg 58.967 kg Intake: IV 1750 125 Output: Estimated Blood Loss 5 Other: # Voids 1 - Labs CBC & Chem 7: 12/25/21 07:18 12/25/21 07:18
[2021-12-26 09:30] LABS: Basophils % (A) 0 %; Eosinophils % (A) 0 %; HCT 27.8 % (34.0-46.0); HGB 9.5 gm/dL (11.4-16.0); Lymphocytes # (A) 1.6 k/uL (1.0-4.8); Lymphocytes % (A) 26 %; MCH 30.7 pg (25.0-35.0); MCHC 34.1 g/dL (31.0-37.0); MCV 90.2 fL (80.0-100.0); Mean Platelet Volume 7.6; Monocytes # (A) 0.5 k/uL (0-1.0); Monocytes % (A) 8 %; Neutrophils # (A) 3.9 k/uL (1.3-7.7); Neutrophils % (A) 64 %; Platelet Count 235 k/uL (150-450); RBC 3.08 m/uL (3.80-5.40); RDW 14.4 % (11.5-15.5)
[2021-12-26 09:57] LABS: African American GFR (CKD) >90 (>60 ml/min/1.73 sqM); Anion Gap 6 mmol/L; Blood Urea Nitrogen 10 mg/dL (7-17); Calcium 8.6 mg/dL (8.4-10.2); Carbon Dioxide 27 mmol/L (22-30); Chloride 103 mmol/L (98-107); Glucose 107 mg/dL (74-99); Non-African American GFR(CKD) >90 (>60 ml/min/1.73 sqM); Potassium 3.8 mmol/L (3.5-5.1); Sodium 136 mmol/L (137-145)
[2021-12-26] MEDS: HYDROmorphone 1 MG/ML 1 ML SYRINGE IVP PRN ×3 (16:09→23:26)
[2021-12-26] MEDS ORDERED: LORazepam 2 MG/ML INJ IV PRN (19:21)
[2021-12-26] MEDS: ONDANSETRON 4 MG/2 ML VIAL IVP PRN (20:32)
[2021-12-27] MEDS: ACETAMINOPHEN TAB 325 MG TAB PO SCH ×4 (05:59→23:26)
[2021-12-27] MEDS: FAMOTIDINE 20 MG TAB PO SCH ×2 (09:02→20:23)
[2021-12-27] MEDS: SIMETHICONE 40 MG/0.6 ML DROPS 2,000 MG/30 ML BOTTLE PO SCH ×4 (09:02→22:57)
[2021-12-27] MEDS: HYDROcodone/APAP 5-325MG 1 EACH TAB PO PRN ×2 (09:05→20:21)
[2021-12-27] MEDS: HYDROmorphone 1 MG/ML 1 ML SYRINGE IVP PRN ×5 (10:01→23:25)
--- NOTE | 2021-12-27 10:39 | P.PN ---
Subjective Progress Note Date: 12/27/21 Principal diagnosis: Hemoperitoneum 26-year-old female says she is having more upper abdominal pain now. The pain she had in the lower abdomen she says is improved. She says it is difficult to take a deep breath at the incision sites. She is afebrile with stable vital signs. Hemoglobin 9.5. White blood cell count is normal. Objective - Vital Signs Vital signs: Vital Signs Temp 97.8 F 12/27/21 04:00 Pulse 83 12/27/21 08:00 Resp 16 12/27/21 08:00 BP 94/56 12/27/21 08:00 Pulse Ox 96 12/27/21 08:00 FiO2 Intake & Output 12/26/21 12/27/21 12/27/21 18:59 06:59 18:59 Intake Total 560 480 0 Balance 560 480 0 Intake: Oral 560 480 0 Other: # Voids 3 - Exam Abdomen: Soft, nondistended, mild to moderate tenderness at incision sites - Labs CBC & Chem 7: 12/26/21 09:00 12/26/21 09:00 Assessment and Plan (1) Intra abdominal hemorrhage Narrative/Plan: 26-year-old female complaining of abdominal pain after recent evacuation of hemoperitoneum. Patient's labs looked good and her vital signs remain stable. Continue analgesics. Continue diet. Increase activity Current Visit: Yes Status: Acute Code(s): R58 - HEMORRHAGE, NOT ELSEWHERE CLASSIFIED SNOMED Code(s): 873826080
[2021-12-27] MEDS: ONDANSETRON 4 MG/2 ML VIAL IVP PRN (20:22)
[2021-12-27] MEDS: AMITRIPTYLINE HCL 25 MG TAB PO SCH (20:23)
[2021-12-27] MEDS: MELATONIN 5 MG TABLET PO SCH (20:23)
[2021-12-28 00:06] VITALS: RESP 16
[2021-12-28] MEDS: ACETAMINOPHEN TAB 325 MG TAB PO SCH ×3 (06:14→17:20)
[2021-12-28] MEDS: SIMETHICONE 40 MG/0.6 ML DROPS 2,000 MG/30 ML BOTTLE PO SCH ×4 (09:05→22:12)
[2021-12-28] MEDS: FAMOTIDINE 20 MG TAB PO SCH ×2 (09:05→20:33)
[2021-12-28 09:39] LABS: Basophils % (A) 0 %; Eosinophils # (A) 0.1 k/uL (0-0.7); Eosinophils % (A) 3 %; HCT 30.5 % (34.0-46.0); HGB 9.9 gm/dL (11.4-16.0); Lymphocytes # (A) 1.8 k/uL (1.0-4.8); Lymphocytes % (A) 39 %; MCH 29.8 pg (25.0-35.0); MCHC 32.5 g/dL (31.0-37.0); MCV 91.6 fL (80.0-100.0); Mean Platelet Volume 7.2; Monocytes # (A) 0.3 k/uL (0-1.0); Monocytes % (A) 6 %; Neutrophils # (A) 2.2 k/uL (1.3-7.7); Neutrophils % (A) 48 %; Platelet Count 293 k/uL (150-450); RBC 3.33 m/uL (3.80-5.40); RDW 14.5 % (11.5-15.5); WBC 4.6 k/uL (3.8-10.6)
[2021-12-28 09:46] LABS: African American GFR (CKD) >90 (>60 ml/min/1.73 sqM); Anion Gap 4 mmol/L; Blood Urea Nitrogen 12 mg/dL (7-17); Calcium 8.6 mg/dL (8.4-10.2); Carbon Dioxide 32 mmol/L (22-30); Chloride 104 mmol/L (98-107); Glucose 88 mg/dL (74-99); Non-African American GFR(CKD) >90 (>60 ml/min/1.73 sqM); Potassium 3.8 mmol/L (3.5-5.1); Sodium 140 mmol/L (137-145)
[2021-12-28] MEDS: HYDROcodone/APAP 5-325MG 1 EACH TAB PO PRN ×4 (11:19→22:11)
--- NOTE | 2021-12-28 11:25 | P.PN ---
Subjective Progress Note Date: 12/28/21 Principal diagnosis: Hemoperitoneum Patient doing much better today. Her pain is definitely improved. She says she would like to try to go home today possibly. He still has received IV Dilaudid however. Tolerating diet. No nausea or vomiting. Hemoglobin today 9.9, white blood cell count normal. Objective - Vital Signs Vital signs: Vital Signs Temp 97.9 F 12/27/21 20:00 Pulse 67 12/28/21 08:00 Resp 16 12/28/21 08:00 BP 84/48 12/28/21 08:00 Pulse Ox 99 12/28/21 08:00 FiO2 Intake & Output 12/27/21 12/28/21 12/28/21 18:59 06:59 18:59 Intake Total 240 720 Output Total 0 0 Balance 240 720 Intake: Oral 240 720 Output: Urine 0 Stool 0 0 Urine/Stool Mix 0 Emesis 0 Oral Regurgitation 0 Other: # Voids 1 1 # Bowel Movements 0 - Exam Abdomen: Soft, nondistended, only mildly tender, incisions clean and dry - Labs CBC & Chem 7: 12/28/21 09:10 12/28/21 09:10 Labs: Abnormal Lab Results - Last 24 Hours (Table) 12/28/21 12/28/21 Range/Units 09:10 09:10 RBC 3.33 L (3.80-5.40) m/uL Hgb 9.9 L (11.4-16.0) gm/dL Hct 30.5 L (34.0-46.0) % Carbon Dioxide 32 H (22-30) mmol/L Assessment and Plan (1) Intra abdominal hemorrhage Narrative/Plan: Patient is doing better today. Hold Dilaudid. Patient's pain is controlled with oral [place] November discharge. Outpatient follow-up with Dr. Smith. Current Visit: Yes Status: Acute Code(s): R58 - HEMORRHAGE, NOT ELSEWHERE CLASSIFIED SNOMED Code(s): 676523027
[2021-12-28] MEDS ORDERED: SCOPOLAMINE 1 MG/72 HR PATCH TRANSDERM SCH (15:00)
[2021-12-28] MEDS: AMITRIPTYLINE HCL 25 MG TAB PO SCH (20:33)
[2021-12-29] MEDS: MELATONIN 5 MG TABLET PO SCH (00:10)
[2021-12-29] MEDS: ACETAMINOPHEN TAB 325 MG TAB PO SCH ×3 (00:10→12:53)
[2021-12-29] MEDS: HYDROcodone/APAP 5-325MG 1 EACH TAB PO PRN ×2 (05:33→09:47)
[2021-12-29 05:50] VITALS: TEMP 98.1
[2021-12-29] MEDS: SIMETHICONE 40 MG/0.6 ML DROPS 2,000 MG/30 ML BOTTLE PO SCH ×2 (09:40→12:54)
[2021-12-29] MEDS: FAMOTIDINE 20 MG TAB PO SCH (09:40)
[2021-12-29 13:04] VITALS: BP 125/76; PULSE 99
--- NOTE | 2021-12-29 13:59 | P.DS ---
Providers Date of admission: 12/24/21 18:10 Expected date of discharge: 12/29/21 Attending physician: Faye Rodríguez Consults: 12/24/21 17:58 Consult Physician Routine Consulting Provider: [facility] Consult Reason/Comments: Anesthesia [facility] Do you want consulting provider notified?: Yes 12/24/21 18:12 Consult Physician Routine Consulting Provider: [facility] Consult Reason/Comments: Intra-abdominal/pelvic hemorrhage Do you want consulting provider notified?: Already Contacted Primary care physician: Anay Vieira MD Hospital Course: Discharge diagnosis 1. Hemoperitoneum, peritonitis 2. left ovarian hemorrhagic cyst, endometrioma of the pelvis Hospital course This is a 26-year-old female who presented to the hospital complaining of abdominal pain for the last 1-2 weeks. Ultrasound of the pelvis identified with poor visualization of the left ovary. Right ovary slightly enlarged over [address] of the abdomen and pelvis confirmed hemoperitoneum. Patient is status post Robotic lysis of adhesions with evacuation of hemoperitoneum 500 mL to 1000 mL for hemoperitoneum, peritonitis, left ovarian hemorrhagic cyst and endometrioma of the pelvis. Patient's pain is controlled. She is tolerating diet. She is up and ambulating. She is having bowel movements. Her hemoglobin has remained stable. She is stable for discharge. Physician Reliability Technician note has been reviewed by physician. Signing provider agrees with the documented findings, assessment, and plan of care. POSTOPERATIVE DIAGNOSES: 1. Lower abdominal pain with peritonitis 2. Abnormal abdominal CT scan for hemoperitoneum 3. Chronic migraine headaches 4. Anxiety disorder 5. History of right ovarian teratoma 6. Budd-Chiari malformation 7. Depressive disorder 8. Posttraumatic stress disorder 9. Left ovarian hemorrhagic cyst 10. Endometrioma of the left pelvis 11. Diffuse hemoperitoneum INDICATIONS: The patient is a 26-year-old female who presents with moderate to severe generalized abdominal including the lower quadrant of the abdomen. CT demonstrated hemoperitoneum. She underwent diagnostic laparoscopy, lysis of adhesions and evacuation of hemoperitoneum. Postoperatively, pain of the lower abdomen had improved however she needed continued pain management. Prior to discharge, she was having bowel movements. Hemoglobin had improved prior to discharge. Procedures: OPERATION: 1. Robotic-assisted da Abby Xi laparoscopic with lysis of adhesions with evacuation of hemoperitoneum 500 mL to 1000 mL 2. Peritoneal lavage 5000 mL normal saline ESTIMATED BLOOD LOSS: 5 mL. SPECIMENS REMOVED: None. COMPLICATIONS: None. Operative Findings: 1. Diffuse hemoperitoneum involving upper and lower abdomen 2. Over 5000 mL normal saline used to irrigate the abdomen 3. Between 500 mL to 1000 mL hemoperitoneum evacuated 4. Pelvic endometrioma involving the left ovary consistent with hemorrhagic left ovarian cyst 5. Right ovary unremarkable 6. Solid organs unremarkable 7. Fallopian tubes unremarkable 8. Large chocolate cyst involving the cul-de-sac posterior to the uterus Patient Condition at Discharge: Stable Plan - Discharge Summary Discharge Rx Participant: No New Discharge Prescriptions: New Simethicone [Gas-X] 125 mg PO AC-TID PRN #20 capsule PRN Reason: Pain Acetaminophen Tab [Tylenol Tab] 1,000 mg PO Q6HR PRN #30 tablet PRN Reason: Pain Continue Magnesium Oxide [Magox 400] 400 mg PO DAILY SUMAtriptan succinate 100 mg PO BID PRN PRN Reason: Migraine Headache Amitriptyline HCl [Elavil] 25 mg PO HS HYDROcodone/APAP 5-325MG [Brandon 5-325] 1 tab PO 5XD PRN PRN Reason: Pain Docusate [Colace] 100 mg PO TID Ondansetron [Zofran ODT] 4 mg PO Q8HR PRN PRN Reason: Nausea Melatonin 20 mg PO HS Discontinued Ibuprofen [Motrin] 800 mg PO Q6H PRN PRN Reason: Pain Or Fever > 100.5 Discharge Medication List Amitriptyline HCl [Elavil] 25 mg PO HS 12/24/21 [History] Docusate [Colace] 100 mg PO TID 12/24/21 [History] HYDROcodone/APAP 5-325MG [Brandon 5-325] 1 tab PO 5XD PRN 12/24/21 [History] Magnesium Oxide [Magox 400] 400 mg PO DAILY 12/24/21 [History] Melatonin 20 mg PO HS 12/24/21 [History] Ondansetron [Zofran ODT] 4 mg PO Q8HR PRN 12/24/21 [History] SUMAtriptan succinate 100 mg PO BID PRN 12/24/21 [History] Acetaminophen Tab [Tylenol Tab] 1,000 mg PO Q6HR PRN #30 tablet 12/26/21 [Rx] Simethicone [Gas-X] 125 mg PO AC-TID PRN #20 capsule 12/26/21 [Rx] Follow up Appointment(s)/Referral(s): Anay Vieira MD [Primary Care Provider] - 1-2 days Faye Rodríguez MD [STAFF PHYSICIAN] - 01/13/22 Patient Instructions/Handouts: Ruptured Ovarian Cyst (DC) Activity/Diet/Wound Care/Special Instructions: Using antibacterial soap. No lifting over 4 pounds 4 weeks, January 24November shower. No bathtub soaks for 2 weeks, January 08 Wear abdominal binder daily for comfort except for showering. Use ice along incisions for today to prevent swelling. Take tylenol simethicone scheduled for 3 days for best pain relief Discharge Disposition: HOME SELF-CARE
== END 2021-12-29 14:59 | disposition home or self-care (01) | DRG 356 ==
LOC: EC 12:39 → 3SCARD 18:10
PROVIDERS: ADMIT Surgery Plastic and Reconstructive Surgery; ATTEND Surgery Plastic and Reconstructive Surgery
PROC: 3E1M48Z Irrigation of Peritoneal Cavity using Irrigating Substance, Percutaneous Endoscopic Approach (ICD-10-PCS; principal; 2021-12-25 07:30)
PROC: 0W9G4ZZ Drainage of Peritoneal Cavity, Percutaneous Endoscopic Approach (ICD-10-PCS; principal; 2021-12-25 07:30)
DX: K66.1 Hemoperitoneum (principal); K65.9 Peritonitis, unspecified; I82.0 Budd-Chiari syndrome; U07.1 COVID-19; K92.1 Melena; D62 Acute posthemorrhagic anemia; Z28.310 Unvaccinated for COVID-19; N80.1 Endometriosis of ovary; N73.6 Female pelvic peritoneal adhesions (postinfective); N83.8 Other noninflammatory disorders of ovary, fallopian tube and broad ligament; G43.909 Migraine, unspecified, not intractable, without status migrainosus; F32.A Depression, unspecified; F43.10 Post-traumatic stress disorder, unspecified; F17.290 Nicotine dependence, other tobacco product, uncomplicated; Z71.6 Tobacco abuse counseling; Z79.899 Other long term (current) drug therapy; Z87.42 Personal history of other diseases of the female genital tract
CPT/HCPCS: 36415; 74177; 76830; 80048; 80053; 81003; 81025; 82150; 82272; 83605; 83690; 84702; 85025; 85610; 85730; 86850; 86900; 86901; 93976; 96374; 96375; 99285

== ENCOUNTER → 2022-01-01 | Outpatient (CLI) | payer OTHER ==
--- NOTE | 2022-01-01 12:29 | US ---
EXAMINATION TYPE: US abdominal trauma fluid DATE OF EXAM: 01/01/2022 COMPARISON: EXAMINATION TYPE: US abdominal trauma fluid DATE OF EXAM: 01/01/2022 COMPARISON: CT & US 2021 CLINICAL HISTORY: K66.1 HEMOPERITONEUM. Patient states she had surgery last week to remove pelvic mas s and blood/fluid that had accumulated in her abdomen and pelvis, patient starting to have LLQ pain i n the past day, sent by doctor to check for blood still in abdomen and pelvis RUQ: appears wnl RLQ: appears wnl Midline pelvis: appears wnl LLQ: 4.6cm complex anechoic area superior and lateral to bladder LUQ: appears wnl Small amount of fluid is within the left lower quadrant is nonspecific. Limited evaluation of the solid organs, no obvious posttraumatic changes IMPRESSION: 1. Some minimal fluid may be within the left lower quadrant which is nonspecific. Hemoperitoneum is n ot excluded. CLINICAL HISTORY: K66.1 HEMOPERITONEUM. STAT exam done through the ER; exam limitations due to acute trauma status. All four abdominal quad rants scanned to assess for fluid post trauma. This study is a focused, limited study. This is not a FAST scan as it does not meet the established AIUM guidelines as such. A trauma ultrasound provides a picture of a patient?s condition at one moment in time. It never elim inates the possibility of injury or fluid collections that are below the detectable threshold of an u ltrasound exam. If negative, alternate imaging may be clinically warranted.
== END | disposition home or self-care (01) ==
LOC: RADUSWWP 10:20
PROVIDERS: ATTEND Internal Medicine
DX: K66.1 Hemoperitoneum (principal)
CPT/HCPCS: 76705

== ENCOUNTER 2022-01-12 21:45 | Emergency (ER) | payer OTHER ==
[2022-01-12 21:59] VITALS: BP 137/80; PULSE 107; RESP 18; TEMP 98.5
[2022-01-13 02:52] LABS: Appearance,Urine Clear (Clear); Bilirubin,Urine Negative (Negative); Blood,Urine Negative (Negative); Color,Urine Colorless; Glucose,Urine (UA) Negative (Negative); Ketones,Urine Negative (Negative); Leukocyte Esterase,Urine Negative (Negative); Nitrite,Urine Negative (Negative); Protein,Urine Negative (Negative); Specific Gravity,Urine 1.007 (1.001-1.035); Urobilinogen,Urine <2.0 mg/dL (<2.0)
[2022-01-13] MEDS ORDERED: SODIUM CHLORIDE 0.9% 1,000 ML IV STA (03:10)
[2022-01-13] MEDS ORDERED: MORPHINE SULFATE 4 MG/ML SYRINGE IV STA (03:10)
[2022-01-13] MEDS ORDERED: ONDANSETRON 4 MG/2 ML VIAL IVP STA (03:10)
--- NOTE | 2022-01-13 03:12 | ED ---
Abdominal Pain HPI - General Chief Complaint: Abdominal Pain Stated Complaint: Post-Op Abdominal Pain Time Seen by Provider: 01/13/22 03:08 Source: patient, RN notes reviewed, old records reviewed, Caregiver Mode of arrival: ambulatory Limitations: no limitations - History of Present Illness Initial Comments: This is a 26-year-old female to the emergency department for evaluation, no specific medical history broken committing history includes current abdominal surgeries, complicated surgical history coming in today with severe abdominal pain. Positive nausea no vomiting no fevers just worsening of her normal postoperative pain MD Complaint: abdominal pain -: days(s) Location: diffuse, epigastric, suprapubic Radiation: epigastric, suprapubic Migration to: epigastric, suprapubic Severity: moderate Severity scale (1-10): 7 Quality: fullness, sharp Consistency: intermittent Improves With: nothing Worsens With: nothing Context: recent surgery/procedure Associated Symptoms: nausea Treatments Prior to Arrival: prescription analgesics - Related Data Home Medications Medication Instructions Recorded Confirmed Amitriptyline HCl [Elavil] 25 mg PO HS 12/24/21 12/24/21 Docusate [Colace] 100 mg PO TID 12/24/21 12/24/21 HYDROcodone/APAP 5-325MG [[place] 1 tab PO 5XD PRN 12/24/21 12/24/21 5-325] Magnesium Oxide [Magox 400] 400 mg PO DAILY 12/24/21 12/24/21 Melatonin [Melatonin ER] 20 mg PO HS 12/24/21 12/24/21 Ondansetron [Zofran ODT] 4 mg PO Q8HR PRN 12/24/21 12/24/21 SUMAtriptan succinate 100 mg PO BID PRN 12/24/21 12/24/21 Previous Rx's Medication Instructions Recorded Acetaminophen Tab [Tylenol Tab] 1,000 mg PO Q6HR PRN #30 tablet 12/26/21 Simethicone [Gas-X] 125 mg PO AC-TID PRN #20 capsule 12/26/21 polyethylene glycoL 3350 [Miralax] 17 gm PO DAILY #14 packet 01/13/22 Allergies Allergy/AdvReac Type Severity Reaction Status Date / Time No Known Allergies Allergy Verified 12/24/21 15:36 Review of Systems ROS Statement: Those systems with pertinent positive or pertinent negative responses have been documented in the HPI. ROS Other: All systems not noted in ROS Statement are negative. Past Medical History Past Medical History: No Reported History Additional Past Medical History / Comment(s): Migraines History of Any Multi-Drug Resistant Organisms: None Reported Past Surgical History: No Surgical Hx Reported Additional Past Surgical History / Comment(s): Ovarian cyst. Past Anesthesia/Blood Transfusion Reactions: No Reported Reaction Past Psychological History: Anxiety, Depression, PTSD Smoking Status: Vaper Past Alcohol Use History: Daily Past Drug Use History: Marijuana General Exam Limitations: no limitations General appearance: alert, in no apparent distress, anxious Head exam: Present: atraumatic, normocephalic, normal inspection Eye exam: Present: normal appearance, PERRL, EOMI. Absent: scleral icterus, conjunctival injection, periorbital swelling ENT exam: Present: normal exam, mucous membranes moist Neck exam: Present: normal inspection. Absent: tenderness, meningismus, lymphadenopathy Respiratory exam: Present: normal lung sounds bilaterally. Absent: respiratory distress, wheezes, rales, rhonchi, stridor Cardiovascular Exam: Present: normal rhythm, tachycardia, normal heart sounds. Absent: systolic murmur, diastolic murmur, rubs, gallop, clicks GI/Abdominal exam: Present: soft, tenderness, guarding, normal bowel sounds. Absent: distended, rebound, rigid Extremities exam: Present: normal inspection, full ROM, normal capillary refill. Absent: tenderness, pedal edema, joint swelling, calf tenderness Back exam: Present: normal inspection Neurological exam: Present: alert, oriented X3, CN II-XII intact Psychiatric exam: Present: normal affect, normal mood Skin exam: Present: warm, dry, intact, normal color. Absent: rash Course Vital Signs 01/12/22 21:57 Temperature 98.5 F Pulse Rate 107 H Respiratory 18 Rate Blood Pressure 137/80 O2 Sat by Pulse 100 Oximetry - Reevaluation(s) Reevaluation #1: 01/13/22 Medical record is reviewed Reevaluation #2: 01/13/22 Patient symptoms are improved here in the ER Reevaluation #3: 01/13/22 Patient feels relief that there is no new findings and is okay for discharge home Medical Decision Making - Medical Decision Making 26 female, who recently presented with a complicated abdominal operation. Coming in for postoperative abdominal pain.: Feeling well and can be discharged home - Lab Data Result diagrams: 01/13/22 03:27 01/13/22 03:27 Lab Results 01/13/22 01/13/22 01/13/22 Range/Units 02:29 02:57 03:27 WBC 10.8 H (3.8-10.6) k/uL RBC 4.40 (3.80-5.40) m/uL Hgb 13.4 D (11.4-16.0) gm/dL Hct 40.7 (34.0-46.0) % MCV 92.4 (80.0-100.0) fL MCH 30.5 (25.0-35.0) pg MCHC 33.0 (31.0-37.0) g/dL RDW 13.8 (11.5-15.5) % Plt Count 317 (150-450) k/uL MPV 7.3 Neutrophils % 65 % Lymphocytes % 27 % Monocytes % 5 % Eosinophils % 1 % Basophils % 1 % Neutrophils # 7.0 (1.3-7.7) k/uL Lymphocytes # 2.9 (1.0-4.8) k/uL Monocytes # 0.5 (0-1.0) k/uL Eosinophils # 0.1 (0-0.7) k/uL Basophils # 0.1 (0-0.2) k/uL PT (9.0-12.0) sec INR (<1.2) APTT (22.0-30.0) sec Sodium (137-145) mmol/L Potassium (3.5-5.1) mmol/L Chloride (98-107) mmol/L Carbon Dioxide (22-30) mmol/L Anion Gap mmol/L BUN (7-17) mg/dL Creatinine (0.52-1.04) mg/dL Est GFR (CKD-EPI)AfAm (>60 ml/min/1.73 sqM) Est GFR (CKD-EPI)NonAf (>60 ml/min/1.73 sqM) Glucose (74-99) mg/dL Plasma Lactic Acid Mike (0.7-2.0) mmol/L Calcium (8.4-10.2) mg/dL Total Bilirubin (0.2-1.3) mg/dL AST (14-36) U/L ALT (4-34) U/L Alkaline Phosphatase (38-126) U/L Total Protein (6.3-8.2) g/dL Albumin (3.5-5.0) g/dL Amylase (30-110) U/L Lipase (23-300) U/L Urine Color Colorless Urine Appearance Clear (Clear) Urine pH 7.0 (5.0-8.0) Ur Specific [place] 1.007 (1.001-1.035) Urine Protein Negative (Negative) Urine Glucose (UA) Negative (Negative) Urine Ketones Negative (Negative) Urine Blood Negative (Negative) Urine Nitrite Negative (Negative) Urine Bilirubin Negative (Negative) Urine Urobilinogen <2.0 (<2.0) mg/dL Ur Leukocyte Esterase Negative (Negative) Urine HCG, Qual Not Detected (Not Detectd) Blood Type Blood Type Recheck Bld Type Recheck Status Antibody Screen Spec Expiration Date 01/13/22 01/13/22 01/13/22 Range/Units 03:27 03:27 03:27 WBC (3.8-10.6) k/uL RBC (3.80-5.40) m/uL Hgb (11.4-16.0) gm/dL Hct (34.0-46.0) % MCV (80.0-100.0) fL MCH (25.0-35.0) pg MCHC (31.0-37.0) g/dL RDW (11.5-15.5) % Plt Count (150-450) k/uL MPV Neutrophils % % Lymphocytes % % Monocytes % % Eosinophils % % Basophils % % Neutrophils # (1.3-7.7) k/uL Lymphocytes # (1.0-4.8) k/uL Monocytes # (0-1.0) k/uL Eosinophils # (0-0.7) k/uL Basophils # (0-0.2) k/uL PT 10.8 (9.0-12.0) sec INR 1.0 (<1.2) APTT 26.8 (22.0-30.0) sec Sodium 136 L (137-145) mmol/L Potassium 3.8 (3.5-5.1) mmol/L Chloride 101 (98-107) mmol/L Carbon Dioxide 25 (22-30) mmol/L Anion Gap 10 mmol/L BUN 13 (7-17) mg/dL Creatinine 0.59 (0.52-1.04) mg/dL Est GFR (CKD-EPI)AfAm >90 (>60 ml/min/1.73 sqM) Est GFR (CKD-EPI)NonAf >90 (>60 ml/min/1.73 sqM) Glucose 103 H (74-99) mg/dL Plasma Lactic Acid Mike 0.8 (0.7-2.0) mmol/L Calcium 10.1 (8.4-10.2) mg/dL Total Bilirubin 0.4 (0.2-1.3) mg/dL AST 24 (14-36) U/L ALT 17 (4-34) U/L Alkaline Phosphatase 47 (38-126) U/L Total Protein 8.7 H (6.3-8.2) g/dL Albumin 5.0 (3.5-5.0) g/dL Amylase 109 (30-110) U/L Lipase 178 (23-300) U/L Urine Color Urine Appearance (Clear) Urine pH (5.0-8.0) Ur Specific [place] (1.001-1.035) Urine Protein (Negative) Urine Glucose (UA) (Negative) Urine Ketones (Negative) Urine Blood (Negative) Urine Nitrite (Negative) Urine Bilirubin (Negative) Urine Urobilinogen (<2.0) mg/dL Ur Leukocyte Esterase (Negative) Urine HCG, Qual (Not Detectd) Blood Type Blood Type Recheck Bld Type Recheck Status Antibody Screen Spec Expiration Date 01/13/22 Range/Units 04:30 WBC (3.8-10.6) k/uL RBC (3.80-5.40) m/uL Hgb (11.4-16.0) gm/dL Hct (34.0-46.0) % MCV (80.0-100.0) fL MCH (25.0-35.0) pg MCHC (31.0-37.0) g/dL RDW (11.5-15.5) % Plt Count (150-450) k/uL MPV Neutrophils % % Lymphocytes % % Monocytes % % Eosinophils % % Basophils % % Neutrophils # (1.3-7.7) k/uL Lymphocytes # (1.0-4.8) k/uL Monocytes # (0-1.0) k/uL Eosinophils # (0-0.7) k/uL Basophils # (0-0.2) k/uL PT (9.0-12.0) sec INR (<1.2) APTT (22.0-30.0) sec Sodium (137-145) mmol/L Potassium (3.5-5.1) mmol/L Chloride (98-107) mmol/L Carbon Dioxide (22-30) mmol/L Anion Gap mmol/L BUN (7-17) mg/dL Creatinine (0.52-1.04) mg/dL Est GFR (CKD-EPI)AfAm (>60 ml/min/1.73 sqM) Est GFR (CKD-EPI)NonAf (>60 ml/min/1.73 sqM) Glucose (74-99) mg/dL Plasma Lactic Acid Mike (0.7-2.0) mmol/L Calcium (8.4-10.2) mg/dL Total Bilirubin (0.2-1.3) mg/dL AST (14-36) U/L ALT (4-34) U/L Alkaline Phosphatase (38-126) U/L Total Protein (6.3-8.2) g/dL Albumin (3.5-5.0) g/dL Amylase (30-110) U/L Lipase (23-300) U/L Urine Color Urine Appearance (Clear) Urine pH (5.0-8.0) Ur Specific [place] (1.001-1.035) Urine Protein (Negative) Urine Glucose (UA) (Negative) Urine Ketones (Negative) Urine Blood (Negative) Urine Nitrite (Negative) Urine Bilirubin (Negative) Urine Urobilinogen (<2.0) mg/dL Ur Leukocyte Esterase (Negative) Urine HCG, Qual (Not Detectd) Blood Type O Positive Blood Type Recheck O Pos Bld Type Recheck Status No Antibody Screen NEGATIVE Spec Expiration Date 01/16/20222329 - Radiology Data Radiology results: report reviewed (CT of the abdomen and pelvis is positive for constipation), image reviewed Disposition Clinical Impression: Abdominal pain, Constipation, Postoperative pain Disposition: HOME SELF-CARE Condition: Good Instructions (If sedation given, give patient instructions): Constipation (ED), Abdominal Pain (ED) Prescriptions: polyethylene glycoL 3350 [Miralax] 17 gm PO DAILY #14 packet Is patient prescribed a controlled substance at d/c from ED?: No Referrals: Anay Vieira MD [Primary Care Provider] - 1-2 days
[2022-01-13] MEDS ORDERED: HYDROmorphone 1 MG/ML 1 ML SYRINGE IVP PRN (03:16)
[2022-01-13] MEDS ORDERED: HYDROmorphone 1 MG/ML 1 ML SYRINGE IVP STA (03:16)
[2022-01-13 03:35] LABS: Basophils # (A) 0.1 k/uL (0-0.2); Basophils % (A) 1 %; Eosinophils # (A) 0.1 k/uL (0-0.7); Eosinophils % (A) 1 %; HCT 40.7 % (34.0-46.0); Lymphocytes # (A) 2.9 k/uL (1.0-4.8); Lymphocytes % (A) 27 %; MCH 30.5 pg (25.0-35.0); MCV 92.4 fL (80.0-100.0); Mean Platelet Volume 7.3; Monocytes # (A) 0.5 k/uL (0-1.0); Monocytes % (A) 5 %; Neutrophils % (A) 65 %; Platelet Count 317 k/uL (150-450); RDW 13.8 % (11.5-15.5); WBC 10.8 k/uL (3.8-10.6)
[2022-01-13 03:47] LABS: ALT 17 U/L (4-34); AST 24 U/L (14-36); African American GFR (CKD) >90 (>60 ml/min/1.73 sqM); Alkaline Phosphatase 47 U/L (38-126); Amylase 109 U/L (30-110); Anion Gap 10 mmol/L; Blood Urea Nitrogen 13 mg/dL (7-17); Calcium 10.1 mg/dL (8.4-10.2); Carbon Dioxide 25 mmol/L (22-30); Chloride 101 mmol/L (98-107); Glucose 103 mg/dL (74-99); Lipase 178 U/L (23-300); Non-African American GFR(CKD) >90 (>60 ml/min/1.73 sqM); Potassium 3.8 mmol/L (3.5-5.1); Sodium 136 mmol/L (137-145); Total Bilirubin 0.4 mg/dL (0.2-1.3); Total Protein 8.7 g/dL (6.3-8.2)
[2022-01-13 03:54] LABS: HGB 13.4 gm/dL (11.4-16.0)
[2022-01-13 04:00] LABS: Partial Thromboplastin Time 26.8 sec (22.0-30.0); Prothrombin Time 10.8 sec (9.0-12.0)
--- NOTE | 2022-01-13 04:48 | CT ---
EXAM: CT Abdomen and Pelvis Without Intravenous Contrast CLINICAL HISTORY: post op pain. Ruptured ovarian cyst 2 weeks ago. Suddenly got today TECHNIQUE: Axial computed tomography images of the abdomen and pelvis without intravenous contrast. CTDI is 6.97 mGy and DLP is 370 mGy-cm. This CT exam was performed using one or more of the following dose reduction techniques: automated exposure control, adjustment of the mA and/or kV according to patient size, and/or use of iterative reconstruction technique. Coronal and sagittal reformatted images were created and reviewed. Limitation: Lack of contrast decreases the sensitivity of this exam. 405 images COMPARISON: FINDINGS: Lung bases: Unremarkable. No mass. No consolidation. ABDOMEN: Liver: Unremarkable. Gallbladder and bile ducts: Unremarkable. No calcified stones. No ductal dilation. Pancreas: Unremarkable. No ductal dilation. Spleen: Unremarkable. No splenomegaly. Adrenals: Unremarkable. No mass. Kidneys and ureters: Unremarkable. No obstructing stones. No hydronephrosis. Stomach and bowel: moderate amount of stool throughout the colon. Mild dilatation of the cecum, measuring up to 6 cm. No mucosal thickening. PELVIS: Appendix: Normal caliber appendix. Bladder: Unremarkable. No stones. Reproductive: Unremarkable as visualized. ABDOMEN and PELVIS: Intraperitoneal space: Unremarkable. No free air. No significant fluid collection. Bones/joints: No acute fracture. No dislocation. Soft tissues: Unremarkable. Vasculature: Unremarkable. No abdominal aortic aneurysm. Lymph nodes: Unremarkable. No enlarged lymph nodes. IMPRESSION: moderate amount of stool throughout the colon.
[2022-01-13] MEDS ORDERED: SENNOSIDES-DOCUSATE SODIUM 1 EACH TAB PO STA (04:52)
[2022-01-13] MEDS ORDERED: traMADol 50 MG STARTER PACK 3 TAB BTL PO STA (04:52)
[2022-01-13] MEDS ORDERED: Acetaminophen-Codeine 300-30mg TAB PO STA (04:52)
[2022-01-13] MEDS ORDERED: ACET/COD 300 MG/30 MG STARTER PACK 6 TAB BTL PO STA (04:52)
== END 2022-01-13 06:01 | disposition home or self-care (01) ==
LOC: EC 21:45
DX: K59.00 Constipation, unspecified (principal); F17.209 Nicotine dependence, unspecified, with unspecified nicotine-induced disorders
CPT/HCPCS: 36415; 86900; 86901; 80053; 82150; 83605; 83690; 85025; 85610; 85730; 86850; 81003; 81025; 74176; 99284; 96374; 96375; 96361; J2405; J1170

== ENCOUNTER 2022-11-14 12:29 | Observation (INO) | payer OTHER ==
[2022-11-14] MEDS ORDERED: SODIUM CHLORIDE 0.9% 1,000 ML IV STA (13:00)
[2022-11-14] MEDS ORDERED: MORPHINE SULFATE 4 MG/ML SYRINGE IV STA (13:00)
--- NOTE | 2022-11-14 13:02 | ED ---
General Adult HPI - General Source: patient Mode of arrival: ambulatory Limitations: no limitations <Ernie Sykes - Last Filed: 11/14/22 14:52> - General Source: RN notes reviewed, old records reviewed <JordanNick warren William - Last Filed: 11/14/22 17:01> - General Chief complaint: Abdominal Pain Stated complaint: Abd pain Time Seen by Provider: 11/14/22 12:49 - History of Present Illness Initial comments: Dictation was produced using [employer] dictation software. please excuse any grammatical, word or spelling errors. Chief Complaint: 27-year-old female complex pelvic history presents to the ER for severe right lower quadrant abdominal pain History of Present Illness: Patient on 27-year-old female she has complex pelvic history. Patient states that she has history of hemorrhagic cyst that was evaluated by expiratory laparoscopy. Patient has no history of appendectomy. Since yesterday she's been having severe right lower quadrant abdominal pain. Denies any fevers. She is worried that this is recurrence of her hemorrhagic cyst that had ruptured in the past. She complains of some mild nausea. Denies any fever. No diarrhea. The ROS documented in this emergency department record has been reviewed and confirmed by me. Those systems with pertinent positive or negative responses have been documented in the HPI. All other systems are other negative and/or noncontributory. (Ernie Sykes) - Related Data Home Medications Medication Instructions Recorded Confirmed HYDROcodone/APAP 5-325MG [[place] 1 tab PO TID PRN 12/24/21 11/14/22 5-325] SUMAtriptan succinate 100 mg PO BID PRN 12/24/21 11/14/22 Amitriptyline HCl [Elavil] 50 mg PO HS 11/14/22 11/14/22 Atogepant [Qulipta] 60 mg PO DAILY 11/14/22 11/14/22 Cholecalciferol [Vitamin D3 (25 50 mcg PO DAILY 11/14/22 11/14/22 Mcg = 1000 Iu)] Ferrous Sulfate [Feosol] 325 mg PO BID 11/14/22 11/14/22 Ibuprofen [Motrin] 400 mg PO Q6H PRN 11/14/22 11/14/22 Naloxone HCl [Narcan] 4 mg NASAL ONCE PRN 11/14/22 11/14/22 Prochlorperazine [Compazine] 10 mg PO Q6H 11/14/22 11/14/22 Propranolol [Inderal] 10 mg PO BID 11/14/22 11/14/22 SUMAtriptan succinate 6 mg SQ BID PRN 11/14/22 11/14/22 diazePAM [Valium] 5 mg PO BID PRN 11/14/22 11/14/22 methocarbamoL [Methocarbamol] 750 mg PO TID PRN 11/14/22 11/14/22 Allergies Allergy/AdvReac Type Severity Reaction Status Date / Time adhesive Allergy Rash/Hives Verified 11/14/22 16:20 metoclopramide [From Reglan] Allergy Hallucinati Verified 11/14/22 16:20 ons SKIN GLUE Allergy Rash/Hives Uncoded 11/14/22 12:38 Review of Systems ROS Other: All systems not noted in ROS Statement are negative. <Ernie Sykes - Last Filed: 11/14/22 14:52> ROS Other: All systems not noted in ROS Statement are negative. <Nick Augustine - Last Filed: 11/14/22 17:01> ROS Statement: Those systems with pertinent positive or pertinent negative responses have been documented in the HPI. Past Medical History Past Medical History: No Reported History Additional Past Medical History / Comment(s): Migraines, poly cyctic ovaries History of Any Multi-Drug Resistant Organisms: None Reported Past Surgical History: No Surgical Hx Reported Additional Past Surgical History / Comment(s): Ovarian cyst. brain surgery Past Anesthesia/Blood Transfusion Reactions: No Reported Reaction Past Psychological History: Anxiety, Depression, PTSD Smoking Status: Vaper Past Alcohol Use History: Daily Past Drug Use History: Marijuana <Ernie Sykes - Last Filed: 11/14/22 14:52> General Exam Limitations: no limitations <Ernie Sykes - Last Filed: 11/14/22 14:52> General appearance: alert, in no apparent distress Head exam: Present: atraumatic, normocephalic Eye exam: Present: normal appearance, PERRL Respiratory exam: Absent: respiratory distress Cardiovascular Exam: Present: regular rate, normal rhythm GI/Abdominal exam: Present: tenderness (Tenderness to palpation predominantly in the right lower quadrant). Absent: distended, guarding, rebound <Nick Augustine - Last Filed: 11/14/22 17:01> - General Exam Comments Initial Comments: PHYSICAL EXAM: General Impression: Alert and oriented x3, acute distress secondary to abdominal pain HEENT: Normocephalic atraumatic, extra-ocular movements intact, pupils equal and reactive to light bilaterally, mucous membranes moist. Cardiovascular: Heart regular rate and rhythm Chest: Able to complete full sentences, no retractions, no tachypnea Abdomen: abdomen soft, tenderness at McBurney's point that patient reports is worse with rebound, non-distended, no organomegaly Musculoskeletal: Pulses present and equal in all extremities, no peripheral edema Motor: no focal deficits noted Neurological: CN II-XII grossly intact, no focal motor or sensory deficits noted Skin: Intact with no visualized rashes Psych: Normal affect and mood (Ernie Sykes) Course <Nick Augustine - Last Filed: 11/14/22 17:01> Vital Signs 11/14/22 11/14/22 11/14/22 12:31 14:00 14:02 Temperature 97.9 F Pulse Rate 91 81 79 Respiratory 16 23 16 Rate Blood Pressure 135/88 139/83 125/78 O2 Sat by Pulse 100 98 Oximetry 11/14/22 11/14/22 14:30 15:00 Temperature Pulse Rate 81 Respiratory 25 H Rate Blood Pressure 125/78 125/78 O2 Sat by Pulse Oximetry - Reevaluation(s) Reevaluation #1: 11/14/22 16:00 Patient's care was signed out awaiting CT imaging and reevaluation. Patient reevaluated at that time, resting comfortably with abdominal tenderness and si gnificant improvement in pain according to the patient after medication. (Nick Augustine) Reevaluation #2: 11/14/22 16:59 Patient reevaluated, given the option for admission versus home with close return parameters. She prefers discharge at this time she will return with worsening pain, fever, lightheadedness. (Nick Augustine) Medical Decision Making - Lab Data Result diagrams: 11/14/22 13:16 11/14/22 13:16 <Ernie Sykes - Last Filed: 11/14/22 14:52> - Lab Data Result diagrams: 11/14/22 13:16 11/14/22 13:16 <Nick Augustine N - Last Filed: 11/14/22 17:01> - Medical Decision Making Was pt. sent in by a medical professional or institution (, [facility], STORE FACILITY TECHNICIAN, urgent care, hospital, or [place] health [place] facility...) When possible be specific @ -No Did you speak to anyone other than the patient for history (EMS, parent, family, police, friend...)? What history was obtained from this source @ -No Did you review nursing and triage notes (agree or disagree)? Why? @ -I reviewed and agree with nursing and triage notes Were old charts reviewed (outside hosp., previous admission, EMS record, old EKG, old radiological studies, urgent care reports/EKG's, [place] health care facility records)? Report findings @ -No old charts were reviewed Differential Diagnosis (chest pain, altered mental status, abdominal pain women, abdominal pain men, vaginal bleeding, musculoskeletal, weakness, fever, dyspnea, syncope, headache, dizziness, GI bleed, back pain, seizure, CVA, palpatations, mental health)? @ -Differential Abdominal Pain Women: Appendicitis, Cholecystitis, diverticulosis, ischemic bowel, pancreatitis, hepatitis, UTI, gastroenteritis, AAA, incarcerated hernia, bowel obstruction, constipation, inflammatory bowel, hepatitis, peptic ulcer disease, splenic infarction, perforated viscus, vulvitis, ovarian torsion, PID, kidney stone, placenta abruption, this is not meant to be an all-inclusive list EKG interpreted by me (3pts min.). @ -None done X-rays interpreted by me (1pt min.). @ -None done CT interpreted by me (1pt min.). @ -Pending U/S interpreted by me (1pt. min.). @ -Ultrasound showed mild free fluid in the pelvis What testing was considered but not performed or refused? (CT, X-rays, U/S, labs)? Why? @ -None What meds were considered but not given or refused? Why? @ -None Did you discuss the management of the patient with other professionals (professionals i.e. [facility] Wang, STORE FACILITY TECHNICIAN, lab, RT, psych nurse, clinical social work aide, printed circuit boards plasma etcher, teacher, animal control officer, caseworker)? Give summary @ -No Was smoking cessation discussed for >3mins.? @ -No Was critical care preformed (if so, how long)? @ -No Were there social determinants of health that impacted care today? How? (Homelessness, low income, unemployed, alcoholism, drug addiction, transportation, low edu. Level, literacy, decrease access to med. care, detention, rehab)? @ -No Was there de-escalation of care discussed even if they declined (Discuss DNR or withdrawal of care, Hospice)? DNR status @ -No What co-morbidities impacted this encounter? (DM, HTN, Smoking, COPD, CAD, C ancer, CVA, ARF, Chemo, Hep., AIDS, mental health diagnosis, sleep apnea, morbid obesity)? @ -None Was patient admitted / discharged? Hospital course, mention meds given and route, prescriptions, significant lab abnormalities, going to OR and other pertinent info. @ -27-year-old female presents to the emergency department with acute right l ower quadrant and suprapubic abdominal pain. Clinical presentation concerning for pelvic pathology versus acute appendicitis. Laboratory evaluation is unremarkable. CBC and metabolic panel is unremarkable. Urinalysis is negative. Pending imaging studies. Undiagnosed new problem with uncertain prognosis? @ -No Drug Therapy requiring intensive monitoring for toxicity (Heparin, Nitro, Insulin, Cardizem)? @ -No Were any procedures done? @ -No Diagnosis/symptom? Acute, or Chronic, or Acute on Chronic? Uncomplicated (without systemic symptoms) or Complicated (systemic symptoms)? @ -1. Acute severe abdominal and pelvic pain Side effects of treatment? @ -No Exacerbation, Progression, or Severe Exacerbation? @ -No Poses a threat to life or bodily function? How? (Chest pain, [place], AR, pneumonia, PE, COPD, DKA, ARF, appy, cholecystitis, CVA, Diverticulitis, Homicidal, Suicidal, threat to staff... and all critical care pts) @ -yes Patient care is signed out to Dr. Augustine for follow-up of pending imaging (Ernie Sykes) Imaging does show complex fluid collection consistent with hemorrhage adjacent to the appendix right lower quadrant. I feel this is related to ruptured ovarian cyst rather than sequelae from appendicitis. There is no fever. No white count and the pain began abruptly. Patient reevaluated and has significant improvement in pain. Abdominal exam is improved compared to prior reported from previous physician. Patient given the option for admission for symptomatically control and reevaluation versus home with strict return parameters and the patient prefers to go home at this time. (Nick Augustine) - Lab Data Lab Results 11/14/22 11/14/22 11/14/22 Range/Units 13:14 13:14 13:16 WBC 5.5 (3.8-10.6) k/uL RBC 3.85 (3.80-5.40) m/uL Hgb 12.0 (11.4-16.0) gm/dL Hct 34.3 (34.0-46.0) % MCV 89.0 (80.0-100.0) fL MCH 31.1 (25.0-35.0) pg MCHC 34.9 (31.0-37.0) g/dL RDW 12.4 (11.5-15.5) % Plt Count 260 (150-450) k/uL MPV 7.4 Neutrophils % 62 % Lymphocytes % 30 % Monocytes % 5 % Eosinophils % 1 % Basophils % 0 % Neutrophils # 3.4 (1.3-7.7) k/uL Lymphocytes # 1.6 (1.0-4.8) k/uL Monocytes # 0.3 (0-1.0) k/uL Eosinophils # 0.1 (0-0.7) k/uL Basophils # 0.0 (0-0.2) k/uL Sodium (137-145) mmol/L Potassium (3.5-5.1) mmol/L Chloride (98-107) mmol/L Carbon Dioxide (22-30) mmol/L Anion Gap mmol/L BUN (7-17) mg/dL Creatinine (0.52-1.04) mg/dL Est GFR (CKD-EPI)AfAm (>60 ml/min/1.73 sqM) Est GFR (CKD-EPI)NonAf (>60 ml/min/1.73 sqM) Glucose (74-99) mg/dL Calcium (8.4-10.2) mg/dL Total Bilirubin (0.2-1.3) mg/dL AST (14-36) U/L ALT (4-34) U/L Alkaline Phosphatase (38-126) U/L Total Protein (6.3-8.2) g/dL Albumin (3.5-5.0) g/dL Urine Color Yellow Urine Appearance Cloudy H (Clear) Urine pH 6.5 (5.0-8.0) Ur Specific [place] 1.031 (1.001-1.035) Urine Protein 1+ H (Negative) Urine Glucose (UA) Negative (Negative) Urine Ketones 1+ H (Negative) Urine Blood Negative (Negative) Urine Nitrite Negative (Negative) Urine Bilirubin Negative (Negative) Urine Urobilinogen <2.0 (<2.0) mg/dL Ur Leukocyte Esterase Negative (Negative) Urine RBC 1 (0-5) /hpf Urine WBC <1 (0-5) /hpf Ur Squamous Epith Cells 9 H (0-4) /hpf Urine Bacteria Occasional H (None) /hpf Urine Mucus Many H (None) /hpf Urine HCG, Qual Not Detected (Not Detectd) 11/14/22 Range/Units 13:16 WBC (3.8-10.6) k/uL RBC (3.80-5.40) m/uL Hgb (11.4-16.0) gm/dL Hct (34.0-46.0) % MCV (80.0-100.0) fL MCH (25.0-35.0) pg MCHC (31.0-37.0) g/dL RDW (11.5-15.5) % Plt Count (150-450) k/uL MPV Neutrophils % % Lymphocytes % % Monocytes % % Eosinophils % % Basophils % % Neutrophils # (1.3-7.7) k/uL Lymphocytes # (1.0-4.8) k/uL Monocytes # (0-1.0) k/uL Eosinophils # (0-0.7) k/uL Basophils # (0-0.2) k/uL Sodium 137 (137-145) mmol/L Potassium 4.1 (3.5-5.1) mmol/L Chloride 103 (98-107) mmol/L Carbon Dioxide 29 (22-30) mmol/L Anion Gap 5 mmol/L BUN 12 (7-17) mg/dL Creatinine 0.58 (0.52-1.04) mg/dL Est GFR (CKD-EPI)AfAm >90 (>60 ml/min/1.73 sqM) Est GFR (CKD-EPI)NonAf >90 (>60 ml/min/1.73 sqM) Glucose 92 (74-99) mg/dL Calcium 9.2 (8.4-10.2) mg/dL Total Bilirubin 0.4 (0.2-1.3) mg/dL AST 42 H (14-36) U/L ALT 110 H (4-34) U/L Alkaline Phosphatase 47 (38-126) U/L Total Protein 7.2 (6.3-8.2) g/dL Albumin 4.2 (3.5-5.0) g/dL Urine Color Urine Appearance (Clear) Urine pH (5.0-8.0) Ur Specific [place] (1.001-1.035) Urine Protein (Negative) Urine Glucose (UA) (Negative) Urine Ketones (Negative) Urine Blood (Negative) Urine Nitrite (Negative) Urine Bilirubin (Negative) Urine Urobilinogen (<2.0) mg/dL Ur Leukocyte Esterase (Negative) Urine RBC (0-5) /hpf Urine WBC (0-5) /hpf Ur Squamous Epith Cells (0-4) /hpf Urine Bacteria (None) /hpf Urine Mucus (None) /hpf Urine HCG, Qual (Not Detectd) Disposition <Ernie Sykes - Last Filed: 11/14/22 14:52> Is patient prescribed a controlled substance at d/c from ED?: No Time of Disposition: 17:00 <Nick Augustine - Last Filed: 11/14/22 17:01> Clinical Impression: Ruptured ovarian cyst Disposition: HOME SELF-CARE Condition: Fair Instructions (If sedation given, give patient instructions): Ruptured Ovarian Cyst (ED) Additional Instructions: Please follow up with your tool designer apprentice. Please return to emergency department with worsening pain, fever, lightheadedness. Any new or worsening symptoms. Referrals: Anay Vieira MD [Primary Care Provider] - 1-2 days
[2022-11-14 13:38] LABS: Basophils % (A) 0 %; Eosinophils # (A) 0.1 k/uL (0-0.7); Eosinophils % (A) 1 %; HCT 34.3 % (34.0-46.0); Lymphocytes # (A) 1.6 k/uL (1.0-4.8); Lymphocytes % (A) 30 %; MCH 31.1 pg (25.0-35.0); MCHC 34.9 g/dL (31.0-37.0); Mean Platelet Volume 7.4; Monocytes # (A) 0.3 k/uL (0-1.0); Monocytes % (A) 5 %; Neutrophils # (A) 3.4 k/uL (1.3-7.7); Neutrophils % (A) 62 %; Platelet Count 260 k/uL (150-450); RBC 3.85 m/uL (3.80-5.40); RDW 12.4 % (11.5-15.5); WBC 5.5 k/uL (3.8-10.6)
[2022-11-14 13:45] LABS: Appearance,Urine Cloudy (Clear); Bacteria,Urine Occasional /hpf; Bilirubin,Urine Negative (Negative); Blood,Urine Negative (Negative); Color,Urine Yellow; Glucose,Urine (UA) Negative (Negative); Ketones,Urine 1+ (Negative); Leukocyte Esterase,Urine Negative (Negative); Mucus,Urine Many /hpf; Nitrite,Urine Negative (Negative); PH, Urine 6.5 (5.0-8.0); Protein,Urine 1+ (Negative); RBC,Urine 1 /hpf (0-5); Specific Gravity,Urine 1.031 (1.001-1.035); Squamous Epithelial Cell,Urine 9 /hpf (0-4); Urobilinogen,Urine <2.0 mg/dL (<2.0); WBC,Urine <1 /hpf (0-5)
[2022-11-14 13:52] LABS: AST 42 U/L (14-36); African American GFR (CKD) >90 (>60 ml/min/1.73 sqM); Albumin 4.2 g/dL (3.5-5.0); Blood Urea Nitrogen 12 mg/dL (7-17); Carbon Dioxide 29 mmol/L (22-30); Chloride 103 mmol/L (98-107); Glucose 92 mg/dL (74-99); Non-African American GFR(CKD) >90 (>60 ml/min/1.73 sqM); Potassium 4.1 mmol/L (3.5-5.1); Total Bilirubin 0.4 mg/dL (0.2-1.3); Total Protein 7.2 g/dL (6.3-8.2)
[2022-11-14 13:55] LABS: ALT 110 U/L (4-34); Alkaline Phosphatase 47 U/L (38-126); Anion Gap 5 mmol/L; Calcium 9.2 mg/dL (8.4-10.2); Sodium 137 mmol/L (137-145)
--- NOTE | 2022-11-14 14:25 | US ---
EXAMINATION TYPE: US transvaginal DATE OF EXAM: 11/14/2022 COMPARISON: 12/24/2021 CLINICAL INDICATION: Female, 27 years old with history of severe pelvic pain; Pain Hx of cysts had Te ratoma removed 2020 Hx of ruptured cysts. TECHNIQUE: Transvaginal (TV EXAM MEASUREMENTS: Uterus: 6.8 x 3.2 x 4.4 cm Endometrial Stripe: .8 cm Right Ovary: 3.8 x 2.8 x 2.2 cm Left Ovary: 3.4 x 2.4 x 2.8 cm 1. Uterus: Anteverted wnl 2. Endometrium: wnl 3. Right Ovary: Follicles seen. 4. Left Ovary: Follicles seen. Spectral, color and waveform doppler imaging shows good arterial and venous flow within the ovaries ; there is no evidence for ovarian torsion. 5. Bilateral Adnexa: wnl 6. Posterior cul-de-sac: Fluid is visualized. IMPRESSION: Fluid is noted within the cul-de-sac with internal echoes indicating probable complex fluid possibly hemorrhage. No pelvic mass appreciated at this time.
--- NOTE | 2022-11-14 15:19 | CT ---
The EXAMINATION TYPE: CT abdomen pelvis w con DATE OF EXAM: 11/14/2022 COMPARISON: 01/13/2022 HISTORY: RLQ abdominal pain x [address] DLP: 544 mGycm CONTRAST: CT scan of the abdomen and pelvis is performed without Oral Contrast and with IV Contrast, patient in jected with 100 cc mL of Isovue 300. FINDINGS: LUNG BASES-: No visible nodule. No infiltrate. LIVER/GB: No calcified gallstones. No space occupying hepatic lesion. Biliary tree is of normal ca liber. PANCREAS: No inflammation. No distinct mass. SPLEEN: No splenic enlargement. No lesion seen. ADRENALS: No nodule. No thickening. KIDNEYS/BLADDER: No hydronephrosis. No nephrolithiasis. No distinct renal mass. Urinary bladder g rossly unremarkable. BOWEL: High density material is seen within a normal caliber appendix. The appendix does extend to an area of mixed attenuation which is felt to reflect a crenulated ovarian cyst measuring 2.2 cm. There is surrounding fluid. There is hemorrhagic fluid within the pelvis. Findings are likely secondary to ruptured hemorrhagic ovarian cyst. Please note the tip of the appendix is not clearly visualized. St rict clinical correlation advised. Normal bowel caliber. No definite free air. GENITAL ORGANS: See above LYMPH NODES: No greater than 1cm abdominal or pelvic lymph nodes are appreciated. AORTA: No significant abnormality. OSSEOUS STRUCTURES: No significant abnormality is seen. OTHER: No significant additional abnormality is seen. IMPRESSION: 1. High density material is seen within a normal caliber appendix. The appendix does extend to an are a of mixed attenuation which is felt to reflect a crenulated ovarian cyst measuring 2.2 cm. There is surrounding fluid. There is hemorrhagic fluid within the pelvis. Findings are likely secondary to rup tured hemorrhagic ovarian cyst. Please note the tip of the appendix is not clearly visualized. Strict clinical correlation advised. See saved images.
[2022-11-14] MEDS ORDERED: ONDANSETRON 4 MG/2 ML VIAL IVP STA (15:33)
[2022-11-14] MEDS ORDERED: KETOROLAC 15 MG/ML 1 ML VIAL IVP STA (15:33)
[2022-11-14] MEDS ORDERED: NALOXONE 0.4 MG/ML 1 ML VIAL IV PRN (17:31)
[2022-11-14] MEDS ORDERED: ACETAMINOPHEN TAB 325 MG TAB PO PRN (17:31)
[2022-11-14] MEDS: HYDROmorphone 0.5 MG/0.5 ML SYRINGE IVP PRN ×2 (18:46→22:35)
[2022-11-14] MEDS: SODIUM CHLORIDE 0.9% 1,000 ML IV SCH (18:46)
[2022-11-14] MEDS: KETOROLAC 15 MG/ML 1 ML VIAL IVP PRN (19:55)
[2022-11-14] MEDS: ONDANSETRON 4 MG/2 ML VIAL IVP PRN (19:56)
[2022-11-14] MEDS ORDERED: SUMAtriptan succinate 6 MG/0.5 ML VIAL SQ PRN (20:54)
[2022-11-14] MEDS ORDERED: methocarbamoL 750 MG TAB PO PRN (20:54)
[2022-11-14] MEDS ORDERED: NON FORMULARY DRUG (Naloxone Hcl [Narcan] 4 MG Each) NASAL PRN (20:54)
[2022-11-14] MEDS ORDERED: SUMAtriptan succinate 50 MG TAB PO PRN (20:54)
[2022-11-14] MEDS: FERROUS SULFATE 325 MG TAB PO SCH (21:17)
[2022-11-14] MEDS: diazePAM 5 MG TAB PO PRN (21:17)
[2022-11-14] MEDS: HYDROcodone/APAP 5-325MG 1 EACH TAB PO PRN (21:18)
[2022-11-14] MEDS: AMITRIPTYLINE HCL 50 MG TAB PO SCH (21:35)
[2022-11-14] MEDS: PROPRANOLOL 10 MG TAB PO SCH (21:35)
[2022-11-14] MEDS: PROCHLORPERAZINE 10 MG TAB PO PRN (21:35)
[2022-11-15] MEDS: KETOROLAC 15 MG/ML 1 ML VIAL IVP PRN ×2 (01:59→21:13)
[2022-11-15] MEDS: HYDROmorphone 0.5 MG/0.5 ML SYRINGE IVP PRN ×5 (03:03→21:55)
[2022-11-15] MEDS: ONDANSETRON 4 MG/2 ML VIAL IVP PRN ×3 (03:04→17:08)
[2022-11-15] MEDS: PATIENT'S OWN (Atogepant [Qulipta] 60 MG Tablet) PO SCH (08:39)
[2022-11-15] MEDS: CHOLECALCIFEROL 25 MCG (1000 IU) TABLET PO SCH (08:40)
[2022-11-15] MEDS: FERROUS SULFATE 325 MG TAB PO SCH ×2 (08:40→21:14)
[2022-11-15] MEDS: SODIUM CHLORIDE 0.9% 1,000 ML IV SCH (08:40)
[2022-11-15] MEDS: PROPRANOLOL 10 MG TAB PO SCH ×2 (08:40→21:14)
[2022-11-15] MEDS: HYDROcodone/APAP 5-325MG 1 EACH TAB PO PRN ×2 (09:01→17:33)
[2022-11-15] MEDS: PROCHLORPERAZINE 10 MG TAB PO PRN ×3 (09:01→21:23)
[2022-11-15] MEDS: diazePAM 5 MG TAB PO PRN ×2 (09:01→18:45)
[2022-11-15 10:25] LABS: Basophils # (A) 0.03 X 10*3/uL (0.00-0.10); Basophils % (A) 0.4 %; Eosinophils # (A) 0.03 X 10*3/uL (0.04-0.35); Eosinophils % (A) 0.4 %; HCT 31.2 % (37.2-46.3); HGB 10.5 g/dL (12.0-15.0); Immature Grans, Automated 0.1 %; Lymphocytes % (A) 34.1 %; MCHC 33.7 g/dL (32.0-37.0); MCV 89.1 fL (80.0-97.0); Monocytes # (A) 0.44 X 10*3/uL (0.20-1.00); Monocytes % (A) 6.5 %; NRBC Per 100 WBC 0 /100 WBCS (0.0-0.0); Neutrophils # (A) 3.93 X 10*3/uL (1.80-7.70); Neutrophils % (A) 58.5 %; Platelet Count 237 X 10*3/uL (140-440); RDW 12.2 % (11.5-14.5); WBC 6.74 X 10*3/uL (4.50-10.00)
[2022-11-15 10:29] LABS: African American GFR (CKD) 147.9 (60.0-200.0); Albumin/Globulin Ratio 1.78 (1.60-3.17); Anion Gap 9.4 mmol/L (10.00-18.00); BUN/Creat Ratio 17.55 Ratio (12.00-20.00); Blood Urea Nitrogen 10.3 mg/dL (9.0-27.0); Calcium 9.3 mg/dL (8.7-10.3); Carbon Dioxide 25.8 mmol/L (20.0-27.5); Globulin 2.3 g/dL (1.6-3.3); Non-African American GFR(CKD) 127.6 (60.0-200.0); Total Bilirubin 0.3 mg/dL (0.30-1.20); Total Protein 6.3 g/dL (6.2-8.2)
[2022-11-15] MEDS ORDERED: LORazepam 0.5 MG TAB PO PRN (13:23)
[2022-11-15] MEDS: AMITRIPTYLINE HCL 50 MG TAB PO SCH (21:14)
[2022-11-16] MEDS: SODIUM CHLORIDE 0.9% 1,000 ML IV SCH ×3 (00:13→20:14)
[2022-11-16] MEDS: HYDROcodone/APAP 5-325MG 1 EACH TAB PO PRN ×3 (00:15→17:44)
[2022-11-16] MEDS: diazePAM 5 MG TAB PO PRN ×3 (00:16→17:46)
--- NOTE | 2022-11-16 00:38 | P.HPIM ---
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 Patient had a prior history of ruptured ovarian cyst with hemorrhage and had exploratory laparotomy. She has been having symptoms since yesterday. Otherwise denied any fever or chills. Nauseated. No episodes of vomiting. No fevers no chills. No cough or sputum production. Symptoms are similar to her previous ovarian rupture and presented to ER. CT of the abdomen pelvis showed high density material is seen within the normal caliber appendix. Appendix does extend to an area of mixed attenuation which is felt to reflect crenulated ovarian cyst measuring 2.2 cm. There is surrounding fluid. There is hemorrhagic fluid within the pelvis. Findings are likely seco ndary to ruptured hemorrhagic ovarian cyst. Transvaginal ultrasound showed findings noted within the cul-de-sac with internal echoes indicating probable complex fluid possibility hemorrhage. EKG showed sinus rhythm Laboratory data showed WBC 5.4 hemoglobin 12.0 and platelets 260 Sodium 137 potassium 4.1 chloride 103 bicarb is 29 BUN 12 creatinine 0.58 Urinalysis is negative for infection. Review of Systems Constitutional: Patient denies any fever or chills . no Generalized weakness. Abdomen: Patient denied any nausea or vomiting . c/o abd. pain Cardiovascular: Patient denies any chest pain or short of breath no palpitations. Respiratory: patient denied any cough . no sputum production. No shortness of breath Neurologic: Patient denied any numbness or tingling headache. Musculoskeletal: Patient denies any complaints of joint swelling or deformity. Skin: Negative Psychiatric: Negative Endocrine: No heat or cold intolerance. No recent weight gain. Genitourinary: No dysuria or hematuria. All other 14 point ROS negative except the above Past Medical History Past Medical History: No Reported History Additional Past Medical History / Comment(s): Migraines, poly cyctic ovaries History of Any Multi-Drug Resistant Organisms: None Reported Past Surgical History: No Surgical Hx Reported Additional Past Surgical History / Comment(s): Ovarian cyst. brain surgery Past Anesthesia/Blood Transfusion Reactions: No Reported Reaction Past Psychological History: Anxiety, Depression, PTSD Smoking Status: Vaper Past Alcohol Use History: Daily Past Drug Use History: Marijuana Medications and Allergies Home Medications Medication Instructions Recorded Confirmed Type HYDROcodone/APAP 5-325MG [[place] 1 tab PO TID PRN 12/24/21 11/14/22 History 5-325] SUMAtriptan succinate 100 mg PO BID PRN 12/24/21 11/14/22 History Amitriptyline HCl [Elavil] 50 mg PO HS 11/14/22 11/14/22 History Atogepant [Qulipta] 60 mg PO DAILY 11/14/22 11/14/22 History Cholecalciferol [Vitamin D3 (25 50 mcg PO DAILY 11/14/22 11/14/22 History Mcg = 1000 Iu)] Ferrous Sulfate [Iron (65 MG 325 mg PO BID 11/14/22 11/14/22 History Elemental)] Ibuprofen [Motrin] 400 mg PO Q6H PRN 11/14/22 11/14/22 History Naloxone HCl [Narcan] 4 mg NASAL ONCE PRN 11/14/22 11/14/22 History Prochlorperazine [Compazine] 10 mg PO Q6H 11/14/22 11/14/22 History Propranolol [Inderal] 10 mg PO BID 11/14/22 11/14/22 History SUMAtriptan succinate 6 mg SQ BID PRN 11/14/22 11/14/22 History diazePAM [Valium] 5 mg PO BID PRN 11/14/22 11/14/22 History methocarbamoL [Methocarbamol] 750 mg PO TID PRN 11/14/22 11/14/22 History Allergies Allergy/AdvReac Type Severity Reaction Status Date / Time adhesive Allergy Rash/Hives Verified 11/14/22 16:20 metoclopramide [From Reglan] Allergy Hallucinati Verified 11/14/22 16:20 ons SKIN GLUE Allergy Rash/Hives Uncoded 11/14/22 12:38 Physical Exam Vitals: Vital Signs Temp Pulse Pulse Resp BP BP Pulse Ox 11/15/22 07:42 98.2 F 63 17 106/69 99 11/15/22 01:15 98.3 F 66 16 95/52 99 11/14/22 19:34 98.0 F 82 16 125/80 100 11/14/22 18:13 95.7 F L 72 18 153/90 100 11/14/22 17:55 98.1 F 85 18 123/74 97 11/14/22 15:00 125/78 11/14/22 14:30 81 25 H 125/78 11/14/22 14:02 79 16 125/78 98 11/14/22 14:00 81 23 139/83 11/14/22 12:31 97.9 F 91 16 135/88 100 Intake and Output 11/14/22 11/15/22 11/15/22 22:59 06:59 14:59 Other: Voiding Method Toilet # Voids 2 Weight 57.153 kg PHYSICAL EXAMINATION: Patient is lying in the bed comfortably, no acute distress, awake alert and oriented.. HEENT: Normocephalic. Neck is supple. Pupils reactive. Nostrils clear. Oral cavi ty is moist. Neck reveals no JVD, carotid bruits, or thyromegaly. CHEST EXAMINATION: Trachea is central. Symmetrical expansion. Lung acosta clear to auscultation and percussion. CARDIAC: Normal S1, S2 with no gallops. No murmurs ABDOMEN: Soft. Bowel sounds present. RLQ tender. No organomegaly. No abdominal bruits. Extremities: reveal no edema. No clubbing or cyanosis Neurologically awake, alert, oriented x3 with well-coordinated movements. No focal deficits noted Skin: No rash or skin lesions. Psychiatric: Coperative. Nonsuicidal, Musculoskeletal: No joint swelling or deformity. Normal range of motion. Results CBC & Chem 7: 11/15/22 05:49 11/15/22 05:49 Labs: Abnormal Lab Results - Last 24 Hours (Table) 11/14/22 11/14/22 11/15/22 Range/Units 13:14 13:16 05:49 RBC (4.10-5.20) X 10*6/uL Hgb (12.0-15.0) g/dL Hct (37.2-46.3) % Eosinophils # (0.04-0.35) X 10*3/uL Anion Gap 9.40 L (10.00-18.00) mmol/L Glucose 173 H (70-110) mg/dL AST 42 H (14-36) U/L ALT 110 H 83 H (4-34) U/L Alkaline Phosphatase 38 L (41-126) U/L Urine Appearance Cloudy H (Clear) Urine Protein 1+ H (Negative) Urine Ketones 1+ H (Negative) Ur Squamous Epith Cells 9 H (0-4) /hpf Urine Bacteria Occasional H (None) /hpf Urine Mucus Many H (None) /hpf 11/15/22 Range/Units 05:49 RBC 3.50 L (4.10-5.20) X 10*6/uL Hgb 10.5 L (12.0-15.0) g/dL Hct 31.2 L (37.2-46.3) % Eosinophils # 0.03 L (0.04-0.35) X 10*3/uL Anion Gap (10.00-18.00) mmol/L Glucose (70-110) mg/dL AST (14-36) U/L ALT (4-34) U/L Alkaline Phosphatase (41-126) U/L Urine Appearance (Clear) Urine Protein (Negative) Urine Ketones (Negative) Ur Squamous Epith Cells (0-4) /hpf Urine Bacteria (None) /hpf Urine Mucus (None) /hpf Thrombosis Risk Factor Assmnt - DVT/VTE Prophylaxis DVT/VTE Prophylaxis: Mechanical Prophylaxis ordered - Choose All That Apply Any of the Below Risk Factors Present?: No Other Risk Factors: No Other congenital or acquired thrombophilia - If yes, enter type in comment: No Thrombosis Risk Factor Assessment Level: Very Low Risk Assessment and Plan Assessment: Right lower quadrant abdominal pain likely secondary to ruptured hemorrhagic ovarian cyst. 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 Plan: Patient will be continued on IV hydration pain management with Dilaudid and To radol and continue with home medications. Continue symptomatic management for nausea . General surgery was consulted. Discussed with the patient in detail at bedside. Follow-up closely. Time with Patient: Greater than 30
[2022-11-16] MEDS: ONDANSETRON 4 MG/2 ML VIAL IVP PRN ×3 (01:36→20:09)
[2022-11-16] MEDS: HYDROmorphone 0.5 MG/0.5 ML SYRINGE IVP PRN ×5 (01:36→20:09)
[2022-11-16] MEDS: CHOLECALCIFEROL 25 MCG (1000 IU) TABLET PO SCH (08:14)
[2022-11-16] MEDS: FERROUS SULFATE 325 MG TAB PO SCH ×2 (08:14→20:10)
[2022-11-16] MEDS: PROPRANOLOL 10 MG TAB PO SCH ×2 (08:15→20:10)
[2022-11-16] MEDS: PROCHLORPERAZINE 10 MG TAB PO PRN (08:21)
[2022-11-16] MEDS: PATIENT'S OWN (Atogepant [Qulipta] 60 MG Tablet) PO SCH (08:54)
--- NOTE | 2022-11-16 12:02 | P.GSCN ---
History of Present Illness Consult date: 11/16/22 History of present illness: CHIEF COMPLAINT: Abdominal pain HISTORY OF PRESENT ILLNESS: This is a 27-year-old female who presented to the hospital with complaints of right lower quadrant suprapubic area tenderness 2 days. She also was having nausea and vomiting. Patient reports symptoms felt similar to her prior hemorrhagic ovarian cyst. In December 2021 patient had robotic-assisted laparoscopic lysis of adhesions with evacuation of hemoperitoneum. 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 Patient had computed tomography sc an of abdomen and pelvis that notes hemorrhagic fluid within the pelvis. Findings are likely secondary to ruptured hemorrhagic ovarian cyst. PAST MEDICAL HISTORY: See list. PAST SURGICAL HISTORY: See list.Patient had brain surgery for budd-chairi malformation at [facility] in July 2022 MEDICATIONS: See list. ALLERGIES: See list. SOCIAL HISTORY: No illicit drug use. REVIEW OF SYSTEMS: CONSTITUTIONAL: Denies fever or chills. HEENT: Denies blurred vision, vision changes, or eye pain. Denies hemoptysis ENDOCRINE: Denies heat or cold intolerance. CARDIOVASCULAR: Denies chest pain or pressure. RESPIRATORY: No shortness of breath. GASTROINTESTINAL: Please refer to HPI NEURO: Denies history of seizures. PSYCH: No depression or suicidal ideation HEMATOLOGIC: Denies bleeding disorders. LYMPHATIC: The patient denies any lumps and bumps around the neck. GENITOURINARY: Denies any blood in urine or increased urinary frequency. MUSCULOSKELETAL: Denies myalgias. Denies joint swelling. Denies decreased range of motion beyond patients baseline. SKIN: Denies pruitis. Denies rash. PHYSICAL EXAM: VITAL SIGNS: Reviewed GENERAL: Well-developed in no acute distress. HEENT: No sclera icterus. Extraocular movements grossly intact. Moist buccal mucosa. Head is atraumatic, normocephalic. Hears conversational speech. No nasal drainage. NECK: Supple without lymphadenopathy. CHEST: Non-labored respirations and equal bilateral excursions. CARDIOVASCULAR: Palpable 2+ radial pulses. ABDOMEN: Soft. Nondistended. Tender with palpation in the right lower quadrant MUSCULOSKELETAL: No clubbing or cyanosis. NEUROLOGIC: No focal or lateralizing signs. Cranial nerves II through XII grossly intact. PSYCH: Appropriate affect. Alert and oriented to person, place and time. SKIN: Well perfused. Good skin turgor. LABORATORY DATA: WBC is 6.74 Hgb 12 down to 10.5 platelets 237 Sodium is 138 potassium 4.4 creatinine 0.6 Urinalysis no evidence of infection IMAGING: Computed tomography scan abdomen and pelvis high density material seen within the normal caliber appendix. The appendix does extend to an area of mixed attenuation which is felt to reflect a crenulated ovarian cyst measuring 2.2 cm. There is surrounding fluid. There is hemorrhagic fluid within the pelvis. Findings are likely secondary to ruptured hemorrhagic ovarian cyst. Please note the tip of the appendix is not clearly visualized. Ultrasound fluid is noted within the cul-de-sac with internal echoes indicating probable complex fluid possibly hemorrhage. No pelvic mass appreciated at this time. ASSESSMENT: 1. Right ovarian ruptured hemorrhagic cyst with computed tomography scan eviden ce of hemorrhagic fluid within the pelvis. 2. Abdominal pain 3. Anemia PLAN: -No surgical intervention planned -Changed Toradol to scheduled to help with pain control -Continue clear liquid diet -Continue warm compresses needed -Continue supportive care Thank you for this consultation Physician Log Peeler note has been reviewed by physician. Signing provider agrees with the documented findings, assessment, and plan of care. Past Medical History Past Medical History: No Reported History Additional Past Medical History / Comment(s): Migraines, poly cyctic ovaries History of Any Multi-Drug Resistant Organisms: None Reported Past Surgical History: No Surgical Hx Reported Additional Past Surgical History / Comment(s): Ovarian cyst. brain surgery Past Anesthesia/Blood Transfusion Reactions: No Reported Reaction Past Psychological History: Anxiety, Depression, PTSD Smoking Status: Vaper Past Alcohol Use History: Daily Past Drug Use History: Marijuana Medications and Allergies Home Medications Medication Instructions Recorded Confirmed Type HYDROcodone/APAP 5-325MG [[place] 1 tab PO TID PRN 12/24/21 11/14/22 History 5-325] SUMAtriptan succinate 100 mg PO BID PRN 12/24/21 11/14/22 History Amitriptyline HCl [Elavil] 50 mg PO HS 11/14/22 11/14/22 History Atogepant [Qulipta] 60 mg PO DAILY 11/14/22 11/14/22 History Cholecalciferol [Vitamin D3 (25 50 mcg PO DAILY 11/14/22 11/14/22 History Mcg = 1000 Iu)] Ferrous Sulfate [Feosol] 325 mg PO BID 11/14/22 11/14/22 History Ibuprofen [Motrin] 400 mg PO Q6H PRN 11/14/22 11/14/22 History Naloxone HCl [Narcan] 4 mg NASAL ONCE PRN 11/14/22 11/14/22 History Prochlorperazine [Compazine] 10 mg PO Q6H 11/14/22 11/14/22 History Propranolol [Inderal] 10 mg PO BID 11/14/22 11/14/22 History SUMAtriptan succinate 6 mg SQ BID PRN 11/14/22 11/14/22 History diazePAM [Valium] 5 mg PO BID PRN 11/14/22 11/14/22 History methocarbamoL [Methocarbamol] 750 mg PO TID PRN 11/14/22 11/14/22 History Allergies Allergy/AdvReac Type Severity Reaction Status Date / Time adhesive Allergy Rash/Hives Verified 11/14/22 16:20 metoclopramide [From Reglan] Allergy Hallucinati Verified 11/14/22 16:20 ons SKIN GLUE Allergy Rash/Hives Uncoded 11/14/22 12:38 Surgical - Exam Vital Signs Temp Pulse Resp BP Pulse Ox 97.9 F 91 16 135/88 100 11/14/22 12:31 11/14/22 12:31 11/14/22 12:31 11/14/22 12:31 11/14/22 12:31 Results - Labs 11/15/22 05:49 11/15/22 05:49 Abnormal Lab Results - Last 24 Hours (Table) 11/15/22 11/15/22 Range/Units 05:49 05:49 RBC 3.50 L (4.10-5.20) X 10*6/uL Hgb 10.5 L (12.0-15.0) g/dL Hct 31.2 L (37.2-46.3) % Eosinophils # 0.03 L (0.04-0.35) X 10*3/uL Anion Gap 9.40 L (10.00-18.00) mmol/L Glucose 173 H (70-110) mg/dL ALT 83 H (8-44) U/L Alkaline Phosphatase 38 L (41-126) U/L Diabetes panel 11/15/22 Range/Units 05:49 Sodium 138 (135-145) mmol/L Potassium 4.0 (3.5-5.5) mmol/L Chloride 103 (96-109) mmol/L Carbon Dioxide 25.8 (20.0-27.5) mmol/L BUN 10.3 (9.0-27.0) mg/dL Creatinine 0.6 (0.6-1.5) mg/dL Glucose 173 H (70-110) mg/dL Calcium 9.3 (8.7-10.3) mg/dL AST 25 (13-35) U/L ALT 83 H (8-44) U/L Alkaline Phosphatase 38 L (41-126) U/L Total Protein 6.3 (6.2-8.2) g/dL Albumin 4.0 (3.8-4.9) g/dL Calcium panel 11/15/22 Range/Units 05:49 Calcium 9.3 (8.7-10.3) mg/dL Albumin 4.0 (3.8-4.9) g/dL Pituitary panel 11/15/22 Range/Units 05:49 Sodium 138 (135-145) mmol/L Potassium 4.0 (3.5-5.5) mmol/L Chloride 103 (96-109) mmol/L Carbon Dioxide 25.8 (20.0-27.5) mmol/L BUN 10.3 (9.0-27.0) mg/dL Creatinine 0.6 (0.6-1.5) mg/dL Glucose 173 H (70-110) mg/dL Calcium 9.3 (8.7-10.3) mg/dL Adrenal panel 11/15/22 Range/Units 05:49 Sodium 138 (135-145) mmol/L Potassium 4.0 (3.5-5.5) mmol/L Chloride 103 (96-109) mmol/L Carbon Dioxide 25.8 (20.0-27.5) mmol/L BUN 10.3 (9.0-27.0) mg/dL Creatinine 0.6 (0.6-1.5) mg/dL Glucose 173 H (70-110) mg/dL Calcium 9.3 (8.7-10.3) mg/dL Total Bilirubin 0.30 (0.30-1.20) mg/dL AST 25 (13-35) U/L ALT 83 H (8-44) U/L Alkaline Phosphatase 38 L (41-126) U/L Total Protein 6.3 (6.2-8.2) g/dL Albumin 4.0 (3.8-4.9) g/dL
[2022-11-16] MEDS: KETOROLAC 15 MG/ML 1 ML VIAL IVP SCH ×2 (13:29→17:45)
[2022-11-16] MEDS: AMITRIPTYLINE HCL 50 MG TAB PO SCH (20:10)
[2022-11-17] MEDS: KETOROLAC 15 MG/ML 1 ML VIAL IVP SCH ×2 (00:48→06:25)
[2022-11-17] MEDS: HYDROcodone/APAP 5-325MG 1 EACH TAB PO PRN ×2 (01:40→09:42)
[2022-11-17] MEDS: diazePAM 5 MG TAB PO PRN ×2 (01:40→07:54)
--- NOTE | 2022-11-17 02:17 | P.PN ---
Subjective Progress Note Date: 11/16/22 Patient is a 27-year-old female with known history of migraine headache, history of ruptured ovarian cyst and polycystic ovaries, history of recent decompression brain surgery due to Chiari malformation, anxiety/depression and PTSD and daily alcohol use and history of marijuana use presents to ER with complaints of abdominal pain mainly in the right lower quadrant. Patient had a prior history of ruptured ovarian cyst with hemorrhage and had exploratory laparotomy. She has been having symptoms since yesterday. Otherwise denied any fever or chills. Nauseated. No episodes of vomiting. No fevers no chills. No cough or sputum production. Symptoms are similar to her previous ovarian rupture and presented to ER. CT of the abdomen pelvis showed high density material is seen within the normal caliber appendix. Appendix does extend to an area of mixed attenuation which is felt to reflect crenulated ovarian cyst measuring 2.2 cm. There is surrounding fluid. There is hemorrhagic fluid within the pelvis. Findings are likely secondary to ruptured hemorrhagic ovarian cyst. Transvaginal ultrasound showed findings noted within the cul-de-sac with internal echoes indicating probable complex fluid possibility hemorrhage. EKG showed sinus rhythm Laboratory data showed WBC 5.4 hemoglobin 12.0 and platelets 260 Sodium 137 potassium 4.1 chloride 103 bicarb is 29 BUN 12 creatinine 0.58 Urinalysis is negative for infection. 11/16/2022 Patient is awake alert and oriented x3. On room air. No complaints of chest pain or shortness of breath. Patient is still complaining of abdominal pain. Was seen by general surgery and recommends to schedule Toradol dose. Otherwise patient has been afebrile. No episodes of nausea or vomiting. Tolerating oral diet slowly. Laboratory data WBC 6.7 hemoglobin 10.5 and platelets 237 liver enzymes are trending down. Anticipate discharge in the next 24 hours.. Objective - Vital Signs Vital signs: Vital Signs Temp 99.7 F H 11/16/22 20:00 Pulse 87 11/16/22 20:00 Resp 19 11/16/22 20:00 BP 137/78 11/16/22 20:00 Pulse Ox 100 11/16/22 20:00 FiO2 Intake & Output 11/16/22 11/16/22 11/17/22 06:59 18:59 06:59 Intake Total 600 Balance 600 Intake: Intake, IV Titration 600 Amount Sodium Chloride 0.9% 1, 600 000 ml @ 75 mls/hr IV . [id number] [facility] Rx#:[id number] Other: Voiding Method Toilet # Voids 2 - Exam PHYSICAL EXAMINATION: Patient is lying in the bed comfortably, no acute distress, awake alert and oriented.. HEENT: Normocephalic. Neck is supple. Pupils reactive. Nostrils clear. Oral cavity is moist. Neck reveals no JVD, carotid bruits, or thyromegaly. CHEST EXAMINATION: Trachea is central. Symmetrical expansion. Lung acosta clear to auscultation and percussion. CARDIAC: Normal S1, S2 with no gallops. No murmurs ABDOMEN: Soft. Bowel sounds present. Mild tenderness right lower quadrant. No guarding or rigidity.. No organomegaly. No abdominal bruits. Extremities: reveal no edema. No clubbing or cyanosis Neurologically awake, alert, oriented x3 with well-coordinated movements. No focal deficits noted Skin: No rash or skin lesions. Psychiatric: Coperative. Nonsuicidal, Musculoskeletal: No joint swelling or deformity. Normal range of motion. - Labs CBC & Chem 7: 11/15/22 05:49 11/15/22 05:49 Assessment and Plan Assessment: Right lower quadrant abdominal pain likely secondary to ruptured hemorrhagic ovarian cyst. 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 Plan: Patient will be continued on IV hydration pain management with Dilaudid and Toradol and continue with home medications. Patient was started on scheduled dose of Toradol. Continue symptomatic management for nausea . Appreciate general surgery recommendations.. Discussed with the patient in detail at bedside. Follow-up closely. Time with Patient: Greater than 30
[2022-11-17] MEDS: PROCHLORPERAZINE 10 MG TAB PO PRN (02:18)
[2022-11-17 07:21] VITALS: BP 101/67; PULSE 60; RESP 15; TEMP 97.7
[2022-11-17] MEDS: PATIENT'S OWN (Atogepant [Qulipta] 60 MG Tablet) PO SCH (07:48)
[2022-11-17] MEDS: CHOLECALCIFEROL 25 MCG (1000 IU) TABLET PO SCH (08:52)
[2022-11-17] MEDS: FERROUS SULFATE 325 MG TAB PO SCH (08:52)
[2022-11-17] MEDS: PROPRANOLOL 10 MG TAB PO SCH (08:52)
--- NOTE | 2022-11-17 10:18 | P.PN ---
Subjective Progress Note Date: 11/17/22 CHIEF COMPLAINT: Abdominal pain HISTORY OF PRESENT ILLNESS: Patient presented with right lower abdominal pain. She was found to have a right ovarian ruptured hemorrhagic cyst. Patient reports her pain is better today. Denies any nausea or vomiting. Afebrile. Hemoglobin from today pending PHYSICAL EXAM: VITAL SIGNS: Reviewed GENERAL: Well-developed in no acute distress. HEENT: No sclera icterus. Extraocular movements grossly intact. Moist buccal mucosa. Head is atraumatic, normocephalic. Hears conversational speech. No nasal drainage. NECK: Supple without lymphadenopathy. CHEST: Non-labored respirations and equal bilateral excursions. CARDIOVASCULAR: Palpable 2+ radial pulses. ABDOMEN: Soft. Nondistended. Tenderness palpation right lower quadrant MUSCULOSKELETAL: No clubbing or cyanosis. NEUROLOGIC: No focal or lateralizing signs. Cranial nerves II through XII grossly intact. PSYCH: Appropriate affect. Alert and oriented to person, place and time. SKIN: Well perfused. Good skin turgor. ASSESSMENT: 1. Right ovarian ruptured hemorrhagic cyst with computed tomography scan evidence of hemorrhagic fluid within the pelvis. 2. Abdominal pain 3. Anemia PLAN: -No surgical intervention planned -Advance diet to regular -Patient can be discharged home from surgical standpoint -Recommend that patient follows up with her [employer]OURCE W[employer] PROTECTION SPECIALIST outpatient Physician Social Worker Clinical note has been reviewed by physician. Signing provider agrees with the documented findings, assessment, and plan of care. Objective - Vital Signs Vital signs: Vital Signs Temp 97.7 F 11/17/22 06:58 Pulse 60 11/17/22 06:58 Resp 15 11/17/22 06:58 BP 101/67 11/17/22 06:58 Pulse Ox 99 11/17/22 06:58 FiO2 Intake & Output 11/16/22 11/17/22 11/17/22 18:59 06:59 18:59 Intake Total 600 Output Total 3 Balance 600 -3 Intake: Intake, IV Titration 600 Amount Sodium Chloride 0.9% 1, 600 000 ml @ 75 mls/hr IV . [id number] [facility] Rx#:[id number] Output: Urine 3 Other: Voiding Method Toilet - Labs CBC & Chem 7: 11/15/22 05:49 11/15/22 05:49
[2022-11-17 10:57] LABS: Basophils # (A) 0.04 X 10*3/uL (0.00-0.10); Basophils % (A) 0.6 %; Eosinophils # (A) 0.26 X 10*3/uL (0.04-0.35); Eosinophils % (A) 4.1 %; HCT 30.6 % (37.2-46.3); HGB 9.9 g/dL (12.0-15.0); Immature Grans, Automated 0.2 %; Lymphocytes # (A) 2.59 X 10*3/uL (0.90-5.00); MCH 28.9 pg (27.0-32.0); MCHC 32.4 g/dL (32.0-37.0); MCV 89.2 fL (80.0-97.0); Mean Platelet Volume 9.9 fL (9.5-12.2); Monocytes # (A) 0.66 X 10*3/uL (0.20-1.00); Monocytes % (A) 10.5 %; NRBC Per 100 WBC 0 /100 WBCS (0.0-0.0); Neutrophils # (A) 2.75 X 10*3/uL (1.80-7.70); Neutrophils % (A) 43.6 %; Platelet Count 230 X 10*3/uL (140-440); RBC 3.43 X 10*6/uL (4.10-5.20); RDW 12.4 % (11.5-14.5); WBC 6.31 X 10*3/uL (4.50-10.00)
[2022-11-17 10:59] LABS: Basophils % (A) 0 %; Eosinophils # (A) 0.2 k/uL (0-0.7); Eosinophils % (A) 3 %; HCT 35.3 % (34.0-46.0); HGB 11.5 gm/dL (11.4-16.0); Lymphocytes # (A) 1.5 k/uL (1.0-4.8); Lymphocytes % (A) 27 %; MCH 30.1 pg (25.0-35.0); MCHC 32.6 g/dL (31.0-37.0); MCV 92.4 fL (80.0-100.0); Mean Platelet Volume 7.6; Monocytes # (A) 0.5 k/uL (0-1.0); Monocytes % (A) 8 %; Neutrophils # (A) 3.3 k/uL (1.3-7.7); Neutrophils % (A) 60 %; Platelet Count 250 k/uL (150-450); RBC 3.82 m/uL (3.80-5.40); RDW 12.7 % (11.5-15.5); WBC 5.6 k/uL (3.8-10.6)
[2022-11-17 12:36] LABS: African American GFR (CKD) 143.2 (60.0-200.0); Albumin 3.6 g/dL (3.8-4.9); Albumin/Globulin Ratio 1.7 (1.60-3.17); BUN/Creat Ratio 11.65 Ratio (12.00-20.00); Blood Urea Nitrogen 7.6 mg/dL (9.0-27.0); Calcium 8.8 mg/dL (8.7-10.3); Carbon Dioxide 26.8 mmol/L (20.0-27.5); Globulin 2.1 g/dL (1.6-3.3); Non-African American GFR(CKD) 123.5 (60.0-200.0); Potassium 3.9 mmol/L (3.5-5.5); Total Bilirubin 0.2 mg/dL (0.30-1.20); Total Protein 5.8 g/dL (6.2-8.2)
--- NOTE | 2022-11-19 07:01 | P.DS ---
Providers Date of admission: 11/14/22 17:34 Expected date of discharge: 11/17/22 Attending physician: Kushal Alvarenga Consults: 11/15/22 18:54 Consult Physician Routine Consulting Provider: Faye Rodríguez Consult Reason/Comments: abdominal pain, nausea/vomiting Do you want consulting provider notified?: Yes, Notify in am Primary care physician: Anay Vieira MD Hospital Course: Final diagnosis Right lower quadrant abdominal pain likely secondary to ruptured hemorrhagic ovarian cyst. 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 Patient will follow-up with Dr. Mcelroy in the outpatient setting upon discharge. Patient is to follow-up with animal technician outpatient as scheduled. Total time taken is greater than 35 minutes. Hospital course This is a 27-year-old female who was recently admitted with abdominal pain on the right most likely secondary to ruptured hemorrhagic ovarian cyst. Patient does have history of polycystic ovarian cysts with history of exploratory laparotomy and CT findings showed consistent of ruptured hemorrhagic ovarian cyst on the right. Patient was maintained on pain management and gentle IV hydration and close monitoring of labs. Patient does have extensive history of continued daily alcohol use as well as marijuana and does take a number of pain control medications outpatient. Patient instructed to follow-up with primary care provider as well as gynecology this week. Patient has been cleared for discharge today. Currently no reports of chest pain, shortness of breath, or palpitations. Patient is afebrile. No reports of nausea or vomiting and patient is tolerating diet. Patient will be discharged home today. Guarded prognosis. Physical exam: Gen: This is a 27-year-old female who is awake, alert and oriented 3, thin built HEENT: Head is atraumatic, normocephalic. Pupils equal, round. Sclerae is anicteric. NECK: Supple. No JVD. No lymphadenopathy. No thyromegaly. LUNGS: Clear to auscultation. No wheezes or rhonchi. No intercostal retractions. HEART: Regular rate and rhythm. No murmur. ABDOMEN: Soft. Bowel sounds are present. No masses. Mild tenderness noted of the right lower quadrant. EXTREMITIES: No pedal edema. No calf tenderness. NEUROLOGICAL: Patient is awake, alert and oriented x3. Cranial nerves 2 through 12 are grossly intact. Please refer to medication reconciliation sheet for a list of medications. The impression and plan of care has been dictated by Demetra Woodruff, Nurse Practitioner as directed. Dr. Lyle MD I have performed a history and examination and MDM of this patient, discussed the same with the dictator, and agree with the dictator's assessment and plan as written ,documented as a scribe. Based on total visit time, I have performed more than 50% of the visit. Patient Condition at Discharge: Fair Plan - Discharge Summary New Discharge Prescriptions: Continue SUMAtriptan succinate 100 mg PO BID PRN PRN Reason: Migraine Headache Propranolol [Inderal] 10 mg PO BID methocarbamoL [Methocarbamol] 750 mg PO TID PRN PRN Reason: Muscle Pain Ibuprofen [Motrin] 400 mg PO Q6H PRN PRN Reason: Pain Cholecalciferol [Vitamin D3 (25 Mcg = 1000 Iu)] 50 mcg PO DAILY Prochlorperazine [Compazine] 10 mg PO Q6H Naloxone HCl [Narcan] 4 mg NASAL ONCE PRN PRN Reason: O.D. HYDROcodone/APAP 5-325MG [[place] 5-325] 1 tab PO TID PRN PRN Reason: Pain Ferrous Sulfate [Iron (65 MG Elemental)] 325 mg PO BID diazePAM [Valium] 5 mg PO BID PRN PRN Reason: ANXIETY/PAIN Atogepant [Qulipta] 60 mg PO DAILY Amitriptyline HCl [Elavil] 50 mg PO HS SUMAtriptan succinate 6 mg SQ BID PRN PRN Reason: Migraine Headache Discharge Medication List HYDROcodone/APAP 5-325MG [[place] 5-325] 1 tab PO TID PRN 12/24/21 [History] SUMAtriptan succinate 100 mg PO BID PRN 12/24/21 [History] Amitriptyline HCl [Elavil] 50 mg PO HS 11/14/22 [History] Atogepant [Qulipta] 60 mg PO DAILY 11/14/22 [History] Cholecalciferol [Vitamin D3 (25 Mcg = 1000 Iu)] 50 mcg PO DAILY 11/14/22 [History] Ferrous Sulfate [Iron (65 MG Elemental)] 325 mg PO BID 11/14/22 [History] Ibuprofen [Motrin] 400 mg PO Q6H PRN 11/14/22 [History] Naloxone HCl [Narcan] 4 mg NASAL ONCE PRN 11/14/22 [History] Prochlorperazine [Compazine] 10 mg PO Q6H 11/14/22 [History] Propranolol [Inderal] 10 mg PO BID 11/14/22 [History] SUMAtriptan succinate 6 mg SQ BID PRN 11/14/22 [History] diazePAM [Valium] 5 mg PO BID PRN 11/14/22 [History] methocarbamoL [Methocarbamol] 750 mg PO TID PRN 11/14/22 [History] Follow up Appointment(s)/Referral(s): Anay Vieira MD [Primary Care Provider] - 1-2 days Patient Instructions/Handouts: Ruptured Ovarian Cyst (ED) Activity/Diet/Wound Care/Special Instructions: Please follow up with your animal technician. Please return to emergency department with worsening pain, fever, lightheadedness. Any new or worsening symptoms. Discharge Disposition: HOME SELF-CARE
== END 2022-11-17 10:58 | disposition home or self-care (01) ==
LOC: EC 12:29 → 4SSUR 17:34
PROVIDERS: ADMIT Hospitalist; ATTEND Hospitalist
DX: N83.201 Unspecified ovarian cyst, right side (principal); D64.9 Anemia, unspecified; G43.909 Migraine, unspecified, not intractable, without status migrainosus; F41.9 Anxiety disorder, unspecified; F32.A Depression, unspecified; F43.10 Post-traumatic stress disorder, unspecified; I82.0 Budd-Chiari syndrome; F10.20 Alcohol dependence, uncomplicated; F12.90 Cannabis use, unspecified, uncomplicated; Z79.899 Other long term (current) drug therapy
CPT/HCPCS: 96361 ×3; 96375 ×2; 96376 ×4; 96374; 99285; 36415; 93005; 80053 ×3; 85025 ×3; 81001; 81025; 93975; 76830; 74177; G0378 ×4; S0183 ×4; J2270; J2405 ×3; J1885 ×4; J1170 ×3; Q9967

== ENCOUNTER 2022-12-26 18:42 | Emergency (ER) | payer OTHER ==
[2022-12-26] MEDS ORDERED: DEXAMETHASONE SOD PHOSPHATE 10 MG/ML 1 ML VIAL IVP STA (19:24)
[2022-12-26] MEDS ORDERED: KETOROLAC 15 MG/ML 1 ML VIAL IVP STA (19:24)
[2022-12-26] MEDS ORDERED: SODIUM CHLORIDE 0.9% 1,000 ML IV STA (19:24)
[2022-12-26] MEDS ORDERED: diphenhydrAMINE 50 MG/ML 1 ML VIAL IVP STA (19:24)
[2022-12-26] MEDS ORDERED: ONDANSETRON 4 MG/2 ML VIAL IVP STA (19:26)
--- NOTE | 2022-12-26 19:33 | ED ---
Headache HPI - General Chief Complaint: Headache Stated Complaint: migraine Time Seen by Provider: 12/26/22 19:23 Mode of arrival: ambulatory Limitations: no limitations - History of Present Illness Initial Comments: Patient is a 27-year-old female presents to the emergency department for migraine. Patient has history of migraines and states this feels similar. Reports pain all over her head. Denies any numbness and tingling. Denies nausea or vomiting. Denies fever, chills. Denies focal weakness. No recent head trauma or fall. Patient has had this migraine for 2 weeks states her insurance stopped covering her Qulipta which has caused increased migraines. She has history of Chiari malformation she did have surgery in July. Patient states she was treated at [facility] yesterday she was given fentanyl and Zofran for her migraine because migraine cocktails "don't work for her." - Related Data Home Medications Medication Instructions Recorded Confirmed HYDROcodone/APAP 5-325MG [[place] 1 tab PO TID PRN 12/24/21 11/14/22 5-325] SUMAtriptan succinate 100 mg PO BID PRN 12/24/21 11/14/22 Amitriptyline HCl [Elavil] 50 mg PO HS 11/14/22 11/14/22 Atogepant [Qulipta] 60 mg PO DAILY 11/14/22 11/14/22 Cholecalciferol [Vitamin D3 (25 50 mcg PO DAILY 11/14/22 11/14/22 Mcg = 1000 Iu)] Ferrous Sulfate [Iron (65 MG 325 mg PO BID 11/14/22 11/14/22 Elemental)] Ibuprofen [Motrin] 400 mg PO Q6H PRN 11/14/22 11/14/22 Naloxone HCl [Narcan] 4 mg NASAL ONCE PRN 11/14/22 11/14/22 Prochlorperazine [Compazine] 10 mg PO Q6H 11/14/22 11/14/22 Propranolol [Inderal] 10 mg PO BID 11/14/22 11/14/22 SUMAtriptan succinate 6 mg SQ BID PRN 11/14/22 11/14/22 diazePAM [Valium] 5 mg PO BID PRN 11/14/22 11/14/22 methocarbamoL [Methocarbamol] 750 mg PO TID PRN 11/14/22 11/14/22 Allergies Allergy/AdvReac Type Severity Reaction Status Date / Time adhesive Allergy Rash/Hives Verified 12/26/22 18:56 metoclopramide [From Reglan] Allergy Hallucinati Verified 12/26/22 18:56 ons SKIN GLUE Allergy Rash/Hives Uncoded 12/26/22 18:56 Review of Systems ROS Statement: Those systems with pertinent positive or pertinent negative responses have been documented in the HPI. ROS Other: All systems not noted in ROS Statement are negative. Past Medical History Past Medical History: No Reported History Additional Past Medical History / Comment(s): Migraines, poly cyctic ovaries History of Any Multi-Drug Resistant Organisms: None Reported Past Surgical History: No Surgical Hx Reported Additional Past Surgical History / Comment(s): Ovarian cyst. brain surgery Past Anesthesia/Blood Transfusion Reactions: No Reported Reaction Past Psychological History: Anxiety, Depression, PTSD Smoking Status: Vaper Past Alcohol Use History: Daily Past Drug Use History: Marijuana General Exam Limitations: no limitations General appearance: alert, in no apparent distress Head exam: Present: atraumatic, normocephalic, normal inspection Eye exam: Present: normal appearance, PERRL, EOMI. Absent: scleral icterus, conjunctival injection, periorbital swelling Respiratory exam: Present: normal lung sounds bilaterally. Absent: respiratory distress, wheezes, rales, rhonchi, stridor Cardiovascular Exam: Present: regular rate, normal rhythm, normal heart sounds. Absent: systolic murmur, diastolic murmur, rubs, gallop, clicks Neurological exam: Present: alert, oriented X3, CN II-XII intact Expanded Sensory exam: Upper Extremity Light Touch: Normal, Lower Extremity Light Touch: Normal Motor strength exam: RUE: 5, LUE: 5, RLE: 5, LLE: 5 Psychiatric exam: Present: normal affect, anxious. Absent: normal mood Skin exam: Present: warm, dry, intact, normal color. Absent: rash Course Vital Signs 12/26/22 12/26/22 18:53 22:20 Temperature 98.1 F 97.9 F Pulse Rate 99 87 Respiratory 20 18 Rate Blood Pressure 152/100 119/73 O2 Sat by Pulse 99 100 Oximetry Medical Decision Making - Medical Decision Making Was pt. sent in by a medical professional or institution (, PA, INVESTMENT RECOVERY TECHNICIAN, urgent care, hospital, or snf...) When possible be specific @ -No Did you speak to anyone other than the patient for history (EMS, parent, family, police, friend...)? What history was obtained from this source @ -No Did you review nursing and triage notes (agree or disagree)? Why? @ -I reviewed and agree with nursing and triage notes Were old charts reviewed (outside hosp., previous admission, EMS record, old EKG, old radiological studies, urgent care reports/EKG's, snf records)? Report findings @ -No old charts were reviewed Differential Diagnosis (chest pain, altered mental status, abdominal pain women, abdominal pain men, vaginal bleeding, weakness, fever, dyspnea, syncope, headache, dizziness, GI bleed, back pain, seizure, CVA, palpatations, mental health)? @ -Differential Headache: Migraine, tension, cluster, carbon monoxide, central venous thrombosis, pension karma temporal arteritis, acute closure glaucoma, intercranial hemorrhage, mastoiditis, sinusitis, head injury, this is not meant to be an all-inclusive list. EKG interpreted by me (3pts min.). @ -As above X-rays interpreted by me (1pt min.). @ -None done CT interpreted by me (1pt min.). @ -None done U/S interpreted by me (1pt. min.). @ -None done What testing was considered but not performed or refused? (CT, X-rays, U/S, labs)? Why? @ -Considered CT imaging of the brain however patient states she had CT imaging at [facility] yesterday which was normal What meds were considered but not given or refused? Why? @ -None Did you discuss the management of the patient with other professionals (professionals i.e. , PA, INVESTMENT RECOVERY TECHNICIAN, lab, RT, psych nurse, health and social care teacher, bag worker, teacher, complaint investigations officer, shelter case manager)? Give summary @ -No Was smoking cessation discussed for >3mins.? @ -No Was critical care preformed (if so, how long)? @ -No Were there social determinants of health that impacted care today? How? (Homelessness, low income, unemployed, alcoholism, drug addiction, transportation, low edu. Level, literacy, decrease access to med. care, longterm, rehab)? @ -No Was there de-escalation of care discussed even if they declined (Discuss DNR or withdrawal of care, Hospice)? DNR status @ -[No] What co-morbidities impacted this encounter? (DM, HTN, Smoking, COPD, CAD, Cancer, CVA, ARF, Chemo, Hep., AIDS, mental health diagnosis, sleep apnea, morbid obesity)? @ -[None] Was patient admitted / discharged? Hospital course, mention meds given and route, prescriptions, significant lab abnormalities, going to OR and other pertinent info. @ -Patient presenting for migraine. No neurological deficits on exam. Patient given migraine cocktail with no relief. I then gave her 1 dose of Dilaudid which improved pain initially however pain returned. At this point I recommended CT imaging of the brain for refractory migraine. Patient states she had a CT at [facility] yesterday which was normal. Patient asking for more Dilaudid which was declined. I offered other pain medications such as toradol and tylenol however patient did not want them. We discussed his physician o ptions patient would like to go home she is discharged in stable condition. She will follow-up with her neurologist. Undiagnosed new problem with uncertain prognosis? @ -[No] Drug Therapy requiring intensive monitoring for toxicity (Heparin, Nitro, Insulin, Cardizem)? @ -[No] Were any procedures done? @ -[No] Diagnosis/symptom? @ -migraine Acute, or Chronic, or Acute on Chronic? @ -acute Uncomplicated (without systemic symptoms) or Complicated (systemic symptoms)? @ uncomplicated Side effects of treatment? @ -[No] Exacerbation, Progression, or Severe Exacerbation? @ -[No] Poses a threat to life or bodily function? How? (Chest pain, [place], [place], pneumonia, PE, COPD, DKA, ARF, appy, cholecystitis, CVA, Diverticulitis, Homicidal, Suicidal, threat to staff... and all critical care pts) @ -[No] Dr. Bowman is my attending Disposition Clinical Impression: Migraine Disposition: HOME SELF-CARE Condition: Good Instructions (If sedation given, give patient instructions): Migraine Headache (ED) Additional Instructions: Follow-up with neurologist in one to 2 days. Return to the emergency department if you experience new, concerning, or worsening symptoms. Is patient prescribed a controlled substance at d/c from ED?: No Referrals: Nonstaff,Physician [REFERRING] - 1-2 days
[2022-12-26] MEDS ORDERED: HYDROmorphone 0.5 MG/0.5 ML SYRINGE IVP STA (21:12)
[2022-12-26] MEDS ORDERED: PROMETHAZINE 25 MG TAB PO STA (21:26)
[2022-12-26 22:23] VITALS: BP 119/73; PULSE 87; RESP 18; TEMP 97.9
== END 2022-12-26 22:22 | disposition home or self-care (01) ==
LOC: EC 18:42
DX: G43.909 Migraine, unspecified, not intractable, without status migrainosus (principal); F41.9 Anxiety disorder, unspecified; F32.A Depression, unspecified; F17.290 Nicotine dependence, other tobacco product, uncomplicated; F12.90 Cannabis use, unspecified, uncomplicated; Z88.8 Allergy status to other drugs, medicaments and biological substances; Z91.048 Other nonmedicinal substance allergy status; Z79.899 Other long term (current) drug therapy
CPT/HCPCS: 99283; 96374; 96375 ×3; 96361; J1200; J1100; J2405; J1885; J1170